=== PATIENT | male | born 1945 | race African-American/Black ===

== ENCOUNTER 2020-10-21 07:56 | Emergency (ER) | payer SELFPAY ==
[2020-10-21] MEDS ORDERED: Ondansetron PF 4 MG/2 ML Vial ONE (08:39)
[2020-10-21] MEDS ORDERED: Acetaminophen 500 MG TAB ONE (08:39)
[2020-10-21 09:11] LABS: #Lymphocytes 0.9 thou/uL (1.20-3.40); #Monocytes 0.1 thou/uL (0.11-0.59); %Basophils 0.8 % (0.0-1.0); %Eosinophils 0.2 % (0.0-10.0); %Lymphocytes 29.4 % (21.0-51.0); %Neutrophils 65.7 % (42.0-75.0); Hemoglobin 16.1 g/dL (14.0-18.0); Mean Corpuscular HGB CONC 32.9 g/dL (32.0-36.0); Mean Corpuscular Hemoglobin 27.1 pg (27.0-31.0); Mean Corpuscular Volume 82.3 fL (78.0-98.0); Mean Platelet Volume 6.9 fL (7.4-10.4); Platelet Count 209 thou/uL (130-400); RBC Distribution Width 12.7 % (11.5-14.5); Red Blood Cell (RBC) Count 5.96 mill/uL (4.70-6.10); White Blood Cell (WBC) Count 3.1 thou/uL (4.8-10.8)
[2020-10-21 09:32] LABS: ALT (SGPT) 36 U/L (8-55); AST (SGOT) 49 U/L (5-34); Albumin 3.6 g/dL (3.4-4.8); Alkaline Phosphatase 79 U/L (40-110); Anion Gap 14 mmol/L (10-20); BUN (Urea Nitrogen) 14 mg/dL (8.4-25.7); Bilirubin, Total 0.5 mg/dL (0.2-1.2); Calc. Creatinine Clearance 0 mL/min (70-130); Calcium 8.3 mg/dL (7.8-10.44); Carbon Dioxide 21 mmol/L (23-31); Chloride 98 mmol/L (98-107); Globulin 3.5 g/dL (2.4-3.5); Glucose 196 mg/dL (83-110); Lipase 56 U/L (8-78); Potassium 4.2 mmol/L (3.5-5.1); Protein, Total 7.1 g/dL (5.8-8.1); Sodium 129 mmol/L (136-145)
== END 2020-10-21 10:51 | disposition home or self-care (01) ==
LOC: ERS 07:56
DX: U07.1 COVID-19 (principal); E86.0 Dehydration; E87.1 Hypo-osmolality and hyponatremia; E11.9 Type 2 diabetes mellitus without complications; E78.5 Hyperlipidemia, unspecified; E78.00 Pure hypercholesterolemia, unspecified; I10 Essential (primary) hypertension; Z79.4 Long term (current) use of insulin; Z87.891 Personal history of nicotine dependence; Z79.899 Other long term (current) drug therapy; Z79.82 Long term (current) use of aspirin
CPT/HCPCS: 36415; 71045; 80053; 83690; 84484; 85025; 93005; 96374; J2405

== ENCOUNTER 2020-10-24 13:28 | Inpatient (IN) | payer OTHER, SELFPAY ==
[~2020-10-24 13:28] MED LIST: Iopamidol-370 76% 500 ML 1 ML ONE
[2020-10-24 14:08] LABS: #Basophils 0.1 thou/uL (0.0-0.2); #Lymphocytes 0.9 thou/uL (1.20-3.40); #Monocytes 0.2 thou/uL (0.11-0.59); #Neutrophils 5.6 thou/uL (1.40-6.50); %Basophils 1.1 % (0.0-1.0); %Eosinophils 0.1 % (0.0-10.0); %Lymphocytes 13.2 % (21.0-51.0); %Monocytes 2.3 % (0.0-10.0); %Neutrophils 83.3 % (42.0-75.0); Hemoglobin 17.8 g/dL (14.0-18.0); Mean Corpuscular Hemoglobin 27.3 pg (27.0-31.0); Mean Corpuscular Volume 80.1 fL (78.0-98.0); Mean Platelet Volume 8.2 fL (7.4-10.4); Platelet Count 206 thou/uL (130-400); RBC Distribution Width 12.9 % (11.5-14.5); Red Blood Cell (RBC) Count 6.54 mill/uL (4.70-6.10); White Blood Cell (WBC) Count 6.7 thou/uL (4.8-10.8)
[2020-10-24 14:28] LABS: ALT (SGPT) 81 U/L (8-55); AST (SGOT) 167 U/L (5-34); Albumin 3.4 g/dL (3.4-4.8); Alkaline Phosphatase 102 U/L (40-110); Anion Gap 18 mmol/L (10-20); BUN (Urea Nitrogen) 36 mg/dL (8.4-25.7); Bilirubin, Total 0.8 mg/dL (0.2-1.2); Calc. Creatinine Clearance 0 mL/min (70-130); Calcium 8.9 mg/dL (7.8-10.44); Carbon Dioxide 21 mmol/L (23-31); Chloride 93 mmol/L (98-107); Glucose 407 mg/dL (83-110); Potassium 4.6 mmol/L (3.5-5.1); Protein, Total 7.4 g/dL (5.8-8.1); Sodium 127 mmol/L (136-145)
[2020-10-24 14:51] LABS: CKMB 5.3 ng/mL (0-6.6)
[2020-10-24 15:16] LABS: SARS-CoV-2 NAA Rapid Test DETECTED (NotDetected)
[2020-10-24] MEDS ORDERED: methylPREDNISolone Sod Succ/PF 125 MG/2 ML VIAL ONE (15:17)
[2020-10-24] MEDS ORDERED: Azithromycin 500 MG VIAL ONE (15:17)
[2020-10-24] MEDS ORDERED: Aspirin 325 MG TAB ONE (15:17)
[2020-10-24] MEDS ORDERED: cefTRIAXone\\ROCEPHIN 2 GM VIAL ONE (15:17)
[2020-10-24 17:37] LABS: Lactic Acid 1.6 mmol/L (0.5-2.2)
[2020-10-24 17:42] LABS: Troponin I 0.035 ng/mL (< 0.028)
[2020-10-24] MEDS ORDERED: Pharmacy to Dose REMDESIVIR IVPB PRN (18:25)
[2020-10-24] MEDS ORDERED: Dextrose 50% Abboject 50 ML SYRINGE SLOW IVP PRN (18:56)
[2020-10-24] MEDS ORDERED: Dextrose 5% in Water 1,000 ML IV PRN (18:56)
[2020-10-24] MEDS: Sodium Chloride 0.9% 1,000 ML IV SCH (19:59)
[2020-10-24] MEDS: Heparin 5,000 UNITS/ML VIAL SC SCH (20:00)
[2020-10-24] MEDS ORDERED: REMDESIVIR 200 MG in Sodium Chloride 0.9% 250 ML 210 ML IV SCH (20:00)
[2020-10-24] MEDS: Lantus 1000 UNITS/10 ML VIAL SC SCH (20:31)
[2020-10-24 20:42] LABS: Troponin I 0.043 ng/mL (< 0.028)
[2020-10-24] MEDS: HumaLOG 300 UNITS/3 ML VIAL SC PRN (20:51)
[2020-10-25] MEDS: HumaLOG 300 UNITS/3 ML VIAL SC PRN ×4 (00:28→23:47)
[2020-10-25 03:36] LABS: #Lymphocytes 0.7 thou/uL (1.20-3.40); #Monocytes 0.2 thou/uL (0.11-0.59); #Neutrophils 4.9 thou/uL (1.40-6.50); %Basophils 0.2 % (0.0-1.0); %Lymphocytes 12.5 % (21.0-51.0); %Neutrophils 84.3 % (42.0-75.0); Hemoglobin 16.1 g/dL (14.0-18.0); Mean Corpuscular Hemoglobin 27.2 pg (27.0-31.0); Mean Corpuscular Volume 80.2 fL (78.0-98.0); Mean Platelet Volume 7.9 fL (7.4-10.4); Platelet Count 175 thou/uL (130-400); RBC Distribution Width 12.9 % (11.5-14.5); White Blood Cell (WBC) Count 5.8 thou/uL (4.8-10.8)
[2020-10-25 03:55] LABS: Anion Gap 16 mmol/L (10-20); BUN (Urea Nitrogen) 50 mg/dL (8.4-25.7); Calc. Creatinine Clearance 27 mL/min (70-130); Calcium 8.2 mg/dL (7.8-10.44); Carbon Dioxide 17 mmol/L (23-31); Chloride 100 mmol/L (98-107); Glucose 333 mg/dL (83-110); Potassium 4.2 mmol/L (3.5-5.1); Sodium 129 mmol/L (136-145)
[2020-10-25] MEDS ORDERED: Dexamethasone 6 MG in Sodium Chloride 0.9% 50 ML IVPB SCH (09:00)
[2020-10-25] MEDS: Amlodipine 5 MG TAB PO SCH (09:37)
[2020-10-25] MEDS: Carvedilol 6.25 MG TAB PO SCH (09:37)
[2020-10-25] MEDS: Aspirin 325 MG TAB PO SCH (09:37)
[2020-10-25] MEDS: Lantus 1000 UNITS/10 ML VIAL SC SCH ×2 (09:38→21:12)
[2020-10-25] MEDS: Heparin 5,000 UNITS/ML VIAL SC SCH ×3 (09:38→21:11)
[2020-10-25] MEDS: Sodium Chloride 0.9% 1,000 ML IV SCH ×2 (10:09→23:25)
[2020-10-25] MEDS: cefTRIAXone\\ROCEPHIN 1 GM in Sodium Chloride 0.9% 100 ML IVPB SCH (16:20)
[2020-10-25] MEDS: Azithromycin 500 MG in Sodium Chloride 0.9% 250 ML 250 ML IVPB SCH (16:20)
[2020-10-25] MEDS ORDERED: REMDESIVIR 100 MG in Sodium Chloride 0.9% 250 ML 230 ML IV SCH (20:00)
[2020-10-25] MEDS: Colchicine 0.6 MG TAB PO SCH (21:11)
[2020-10-25] MEDS: Atorvastatin Calcium 40 MG TAB PO SCH (21:11)
[2020-10-26] MEDS: HumaLOG 300 UNITS/3 ML VIAL SC PRN ×3 (06:49→21:51)
[2020-10-26] MEDS: Colchicine 0.6 MG TAB PO SCH ×2 (08:50→21:49)
[2020-10-26] MEDS: Carvedilol 6.25 MG TAB PO SCH (08:50)
[2020-10-26] MEDS: Aspirin 325 MG TAB PO SCH (08:50)
[2020-10-26] MEDS: Amlodipine 5 MG TAB PO SCH (08:51)
[2020-10-26] MEDS: Heparin 5,000 UNITS/ML VIAL SC SCH ×3 (08:51→21:49)
[2020-10-26] MEDS: Lantus 1000 UNITS/10 ML VIAL SC SCH ×2 (08:52→21:49)
[2020-10-26 09:35] LABS: #Monocytes 0.6 thou/uL (0.11-0.59); #Neutrophils 8.5 thou/uL (1.40-6.50); %Lymphocytes 9.6 % (21.0-51.0); %Monocytes 5.7 % (0.0-10.0); %Neutrophils 84.7 % (42.0-75.0); Hemoglobin 16.4 g/dL (14.0-18.0); Mean Corpuscular HGB CONC 32.7 g/dL (32.0-36.0); Mean Corpuscular Hemoglobin 26.7 pg (27.0-31.0); Mean Corpuscular Volume 81.5 fL (78.0-98.0); Mean Platelet Volume 8.2 fL (7.4-10.4); Platelet Count 245 thou/uL (130-400); Red Blood Cell (RBC) Count 6.16 mill/uL (4.70-6.10); White Blood Cell (WBC) Count 10.1 thou/uL (4.8-10.8)
[2020-10-26 10:28] LABS: Anion Gap 17 mmol/L (10-20); BUN (Urea Nitrogen) 82 mg/dL (8.4-25.7); Calc. Creatinine Clearance 17 mL/min (70-130); Calcium 8.1 mg/dL (7.8-10.44); Carbon Dioxide 17 mmol/L (23-31); Chloride 102 mmol/L (98-107); Glucose 203 mg/dL (83-110); Potassium 3.9 mmol/L (3.5-5.1); Sodium 132 mmol/L (136-145)
[2020-10-26 10:48] LABS: Actual Bicarbonate (HCO3a) 19.1 mEq/L (22-28); Base Excess (BEa) -5.2 mEq/L (-2.0 to +3.0); CO2 Tension 33.8 mmHg (35.0-45.0); Hemoglobin (Hb) 15.4 g/dL (14.0-18.0); O2 Tension (PaO2), arterial 60.9 mmHg (> 70.0); Potassium - ABG Lab 3.93 mmol/L (3.70-5.30); pH, Arterial 7.37 (7.35-7.45)
[2020-10-26 10:51] LABS: Puncture Site LRA
[2020-10-26] MEDS: methylPREDNISolone Sod Succ/PF 125 MG in Sodium Chloride 0.9% 250 ML 250 ML IVPB SCH (15:38)
[2020-10-26] MEDS: Azithromycin 500 MG in Sodium Chloride 0.9% 250 ML 250 ML IVPB SCH (15:45)
[2020-10-26] MEDS: cefTRIAXone\\ROCEPHIN 1 GM in Sodium Chloride 0.9% 100 ML IVPB SCH (15:45)
[2020-10-26] MEDS: Sodium Chloride 0.9% 1,000 ML IV SCH (15:49)
[2020-10-26] MEDS ORDERED: Sodium Bicarbonate Tab 325 MG TAB PO SCH (16:00)
[2020-10-26] MEDS: Atorvastatin Calcium 40 MG TAB PO SCH (21:49)
[2020-10-26] MEDS: Sodium Bicarbonate Tab 325 MG TAB PO SCH (21:50)
[2020-10-26] MEDS: Melatonin 3 MG TAB PO PRN (22:19)
[2020-10-26 22:36] LABS: Bilirubin Negative (Negative); Blood, Urine 3+ (Negative); Clarity Turbid (Clear); Glucose, Urine (Dipstick) 100 mg/dL (Negative); Ketone, Urine Negative (Negative); Leukocyte Negative Leu/uL (Negative); Nitrite Negative (Negative); Protein, Urine (Dipstick) 50 mg/dL (Neg-Trace); Specific Gravity, Urine 1.012 (1.002-1.036); Squamous Epithelial 0-3 HPF (0-3); Urobilinogen Normal mg/dL (Less than 2); pH, Urine 5.5 (5.0-9.0)
[2020-10-26 22:43] LABS: Bacteria/HPF 1+ HPF (None Seen)
[2020-10-26 22:46] LABS: Urine Culture Reflex Yes Yes
[2020-10-26 22:49] LABS: Creatinine, Urine 39.31 mg/dL (63-166)
[2020-10-27] MEDS ORDERED: traZODone HCl 50 MG TAB PO SCH (03:00)
[2020-10-27 08:50] LABS: Albumin 2.7 g/dL (3.4-4.8); Anion Gap 17 mmol/L (10-20); BUN (Urea Nitrogen) 100 mg/dL (8.4-25.7); BUN/Creatinine Ratio 15.75; Calc. Creatinine Clearance 15 mL/min (70-130); Calcium 7.9 mg/dL (7.8-10.44); Carbon Dioxide 15 mmol/L (23-31); Chloride 101 mmol/L (98-107); Glucose 186 mg/dL (83-110); Potassium 4.2 mmol/L (3.5-5.1); Sodium 129 mmol/L (136-145)
[2020-10-27] MEDS: Amlodipine 5 MG TAB PO SCH (09:50)
[2020-10-27] MEDS: Aspirin 325 MG TAB PO SCH (09:50)
[2020-10-27] MEDS: Heparin 5,000 UNITS/ML VIAL SC SCH (09:50)
[2020-10-27] MEDS: Carvedilol 6.25 MG TAB PO SCH (09:50)
[2020-10-27] MEDS: Colchicine 0.6 MG TAB PO SCH (09:50)
[2020-10-27] MEDS: Sodium Bicarbonate Tab 325 MG TAB PO SCH ×3 (09:50→20:00)
[2020-10-27] MEDS: Lantus 1000 UNITS/10 ML VIAL SC SCH ×2 (09:51→20:01)
[2020-10-27] MEDS: Azithromycin 500 MG in Sodium Chloride 0.9% 250 ML 250 ML IVPB SCH (15:55)
[2020-10-27] MEDS: cefTRIAXone\\ROCEPHIN 1 GM in Sodium Chloride 0.9% 100 ML IVPB SCH (15:56)
[2020-10-27] MEDS: Acetaminophen 325 MG TAB PO PRN ×2 (15:56→22:52)
[2020-10-27] MEDS ORDERED: Pantoprazole 40 MG VIAL IVP SCH (16:15)
[2020-10-27] MEDS: methylPREDNISolone Sod Succ/PF 125 MG in Sodium Chloride 0.9% 250 ML 250 ML IVPB SCH (16:44)
[2020-10-27] MEDS: HumaLOG 300 UNITS/3 ML VIAL SC PRN (16:47)
[2020-10-27] MEDS: Atorvastatin Calcium 40 MG TAB PO SCH (20:00)
[2020-10-27] MEDS: Enoxaparin Sodium 60 MG/0.6 ML SYRINGE SC SCH (20:00)
[2020-10-27] MEDS: Melatonin 3 MG TAB PO PRN (22:52)
[2020-10-28 03:56] LABS: Albumin 2.9 g/dL (3.4-4.8); Anion Gap 18 mmol/L (10-20); BUN (Urea Nitrogen) 120 mg/dL (8.4-25.7); BUN/Creatinine Ratio 18.13; Band 2 % (5-11); Calc. Creatinine Clearance 14 mL/min (70-130); Carbon Dioxide 16 mmol/L (23-31); Chloride 105 mmol/L (98-107); Glucose 88 mg/dL (83-110); Hemoglobin 15.7 g/dL (14.0-18.0); Lymphocytes 7 % (21-51); MDiff Complete? YES; Mean Corpuscular HGB CONC 32.8 g/dL (32.0-36.0); Mean Corpuscular Hemoglobin 26.1 pg (27.0-31.0); Mean Corpuscular Volume 79.5 fL (78.0-98.0); Mean Platelet Volume 7.9 fL (7.4-10.4); Monocytes 10 % (0-10); Neutrophil 78 % (42-75); Phosphorus 4.2 mg/dL (2.3-4.7); Platelet Count 315 thou/uL (130-400); Platelet Morphology Comment Appears Adequate; Potassium 3.8 mmol/L (3.5-5.1); RBC Distribution Width 13.2 % (11.5-14.5); RBC Morphology Normal; Reactive Lymphocytes 3 % (0-10); Red Blood Cell (RBC) Count 6.02 mill/uL (4.70-6.10); Sodium 135 mmol/L (136-145); White Blood Cell (WBC) Count 10.3 thou/uL (4.8-10.8)
[2020-10-28] MEDS: Carvedilol 6.25 MG TAB PO SCH (08:13)
[2020-10-28] MEDS: Pantoprazole 40 MG VIAL IVP SCH ×2 (08:13→21:00)
[2020-10-28] MEDS: Lantus 1000 UNITS/10 ML VIAL SC SCH ×3 (08:14→21:02)
[2020-10-28] MEDS: Sodium Bicarbonate Tab 325 MG TAB PO SCH ×3 (08:14→21:01)
[2020-10-28] MEDS: Colchicine 0.6 MG TAB PO SCH (08:14)
[2020-10-28] MEDS: Amlodipine 5 MG TAB PO SCH (08:14)
[2020-10-28] MEDS: Aspirin 325 MG TAB PO SCH (08:14)
[2020-10-28] MEDS: Azithromycin 500 MG in Sodium Chloride 0.9% 250 ML 250 ML IVPB SCH (15:53)
[2020-10-28] MEDS: cefTRIAXone\\ROCEPHIN 1 GM in Sodium Chloride 0.9% 100 ML IVPB SCH (17:29)
[2020-10-28] MEDS: Ascorbic Acid 500 mg Chewable Tablet PO SCH (21:00)
[2020-10-28] MEDS: Atorvastatin Calcium 40 MG TAB PO SCH (21:00)
[2020-10-28] MEDS: Enoxaparin Sodium 60 MG/0.6 ML SYRINGE SC SCH (21:01)
[2020-10-28] MEDS: Cholecalciferol 1,000 UNITS (25 MCG) TAB PO SCH (21:01)
[2020-10-28] MEDS: Temazepam 15 MG CAP PO PRN (21:01)
[2020-10-29] MEDS ORDERED: Lorazepam 0.5 MG TAB PO SCH (02:00)
[2020-10-29 05:23] LABS: Albumin 3.2 g/dL (3.4-4.8); Anion Gap 18 mmol/L (10-20); BUN (Urea Nitrogen) 104 mg/dL (8.4-25.7); BUN/Creatinine Ratio 17.75; Calc. Creatinine Clearance 16 mL/min (70-130); Calcium 8.3 mg/dL (7.8-10.44); Carbon Dioxide 17 mmol/L (23-31); Chloride 106 mmol/L (98-107); Glucose 250 mg/dL (83-110); Phosphorus 4.3 mg/dL (2.3-4.7); Sodium 137 mmol/L (136-145)
[2020-10-29] MEDS: HumaLOG 300 UNITS/3 ML VIAL SC PRN (05:33)
[2020-10-29] MEDS: Aspirin 325 MG TAB PO SCH (08:39)
[2020-10-29] MEDS: Ascorbic Acid 500 mg Chewable Tablet PO SCH ×2 (08:39→21:03)
[2020-10-29] MEDS: Pantoprazole 40 MG VIAL IVP SCH ×2 (08:40→21:04)
[2020-10-29] MEDS: Amlodipine 5 MG TAB PO SCH (08:40)
[2020-10-29] MEDS: Carvedilol 6.25 MG TAB PO SCH (08:40)
[2020-10-29] MEDS: Colchicine 0.6 MG TAB PO SCH (08:40)
[2020-10-29] MEDS: Zinc Sulfate 220 MG CAP PO SCH (08:40)
[2020-10-29] MEDS: Lantus 1000 UNITS/10 ML VIAL SC SCH ×2 (08:41→21:27)
[2020-10-29] MEDS: Sodium Bicarbonate Tab 325 MG TAB PO SCH ×3 (10:22→21:03)
[2020-10-29] MEDS: Azithromycin 500 MG in Sodium Chloride 0.9% 250 ML 250 ML IVPB SCH (15:51)
[2020-10-29] MEDS: ALPRAZolam 0.25 MG TAB PO SCH ×3 (15:52→21:03)
[2020-10-29] MEDS: cefTRIAXone\\ROCEPHIN 1 GM in Sodium Chloride 0.9% 100 ML IVPB SCH (16:34)
[2020-10-29] MEDS: Cholecalciferol 1,000 UNITS (25 MCG) TAB PO SCH (21:03)
[2020-10-29] MEDS: Atorvastatin Calcium 40 MG TAB PO SCH (21:03)
[2020-10-29] MEDS: Temazepam 15 MG CAP PO PRN (21:03)
[2020-10-29] MEDS: Enoxaparin Sodium 60 MG/0.6 ML SYRINGE SC SCH (21:04)
[2020-10-30 04:08] LABS: Albumin 3.2 g/dL (3.4-4.8); Anion Gap 16 mmol/L (10-20); BUN (Urea Nitrogen) 86 mg/dL (8.4-25.7); BUN/Creatinine Ratio 19.15; Calc. Creatinine Clearance 21 mL/min (70-130); Calcium 8.4 mg/dL (7.8-10.44); Carbon Dioxide 20 mmol/L (23-31); Chloride 110 mmol/L (98-107); Glucose 119 mg/dL (83-110); Phosphorus 3.1 mg/dL (2.3-4.7); Potassium 4.1 mmol/L (3.5-5.1); Sodium 142 mmol/L (136-145)
[2020-10-30] MEDS ORDERED: Sodium Bicarbonate 150 MEQ in Dextrose 5% in Water 1,000 ML IV SCH (09:15)
[2020-10-30] MEDS: Carvedilol 6.25 MG TAB PO SCH (09:20)
[2020-10-30] MEDS: Colchicine 0.6 MG TAB PO SCH (09:20)
[2020-10-30] MEDS: Zinc Sulfate 220 MG CAP PO SCH (09:20)
[2020-10-30] MEDS: Ascorbic Acid 500 mg Chewable Tablet PO SCH ×2 (09:20→20:58)
[2020-10-30] MEDS: Aspirin 325 MG TAB PO SCH (09:20)
[2020-10-30] MEDS: ALPRAZolam 0.25 MG TAB PO SCH ×2 (09:20→21:40)
[2020-10-30] MEDS: Sodium Bicarbonate Tab 325 MG TAB PO SCH ×3 (09:20→21:15)
[2020-10-30] MEDS: Pantoprazole 40 MG VIAL IVP SCH ×2 (09:20→21:00)
[2020-10-30] MEDS: Lantus 1000 UNITS/10 ML VIAL SC SCH (09:20)
[2020-10-30] MEDS: Amlodipine 5 MG TAB PO SCH ×2 (09:28→20:59)
[2020-10-30 10:13] LABS: Lactic Acid 1.4 mmol/L (0.5-2.2)
[2020-10-30] MEDS: Azithromycin 500 MG in Sodium Chloride 0.9% 250 ML 250 ML IVPB SCH (15:30)
[2020-10-30] MEDS: cefTRIAXone\\ROCEPHIN 1 GM in Sodium Chloride 0.9% 100 ML IVPB SCH (15:30)
[2020-10-30] MEDS: Cholecalciferol 1,000 UNITS (25 MCG) TAB PO SCH (20:59)
[2020-10-30] MEDS: Atorvastatin Calcium 40 MG TAB PO SCH (20:59)
[2020-10-30] MEDS: Enoxaparin Sodium 60 MG/0.6 ML SYRINGE SC SCH (21:00)
[2020-10-30] MEDS: methylPREDNISolone Sod Succ/PF 125 MG in Sodium Chloride 0.9% 250 ML 250 ML IVPB SCH (21:18)
[2020-10-30 22:37] LABS: Actual Bicarbonate (HCO3a) 21.7 mEq/L (22-28); Base Excess (BEa) -0.4 mEq/L (-2.0 to +3.0); CO2 Tension 29.8 mmHg (35.0-45.0); Calcium, Ionized (arterial) 1.13 mmol/L (1.12-1.30); Hemoglobin (Hb) 16.7 g/dL (14.0-18.0); Potassium - ABG Lab 4.02 mmol/L (3.70-5.30); pH, Arterial 7.48 (7.35-7.45)
[2020-10-30 22:38] LABS: O2 Tension (PaO2), arterial 54.3 mmHg (> 70.0); Puncture Site RRA
[2020-10-31 04:07] LABS: Albumin 3.1 g/dL (3.4-4.8); Anion Gap 17 mmol/L (10-20); BUN (Urea Nitrogen) 70 mg/dL (8.4-25.7); BUN/Creatinine Ratio 21.02; Calc. Creatinine Clearance 28 mL/min (70-130); Calcium 8.5 mg/dL (7.8-10.44); Carbon Dioxide 21 mmol/L (23-31); Chloride 110 mmol/L (98-107); Glucose 248 mg/dL (83-110); Phosphorus 3.7 mg/dL (2.3-4.7); Potassium 3.9 mmol/L (3.5-5.1); Sodium 144 mmol/L (136-145)
[2020-10-31] MEDS: HumaLOG 300 UNITS/3 ML VIAL SC PRN (06:35)
[2020-10-31] MEDS: Pantoprazole 40 MG VIAL IVP SCH ×2 (09:34→21:56)
[2020-10-31] MEDS: Lantus 1000 UNITS/10 ML VIAL SC SCH (09:35)
[2020-10-31] MEDS: Carvedilol 6.25 MG TAB PO SCH (09:36)
[2020-10-31] MEDS: Colchicine 0.6 MG TAB PO SCH (09:36)
[2020-10-31] MEDS: Zinc Sulfate 220 MG CAP PO SCH (09:36)
[2020-10-31] MEDS: Aspirin 325 MG TAB PO SCH (09:36)
[2020-10-31] MEDS: ALPRAZolam 0.25 MG TAB PO SCH ×2 (09:36→22:04)
[2020-10-31] MEDS: Sodium Bicarbonate Tab 325 MG TAB PO SCH ×3 (09:36→22:03)
[2020-10-31] MEDS: Amlodipine 5 MG TAB PO SCH ×2 (09:36→22:04)
[2020-10-31] MEDS: Ascorbic Acid 500 mg Chewable Tablet PO SCH ×2 (09:36→22:04)
[2020-10-31] MEDS: Labetalol HCl 100 MG/20 ML VIAL SLOW IVP PRN ×2 (09:50→15:39)
[2020-10-31] MEDS ORDERED: Sodium Bicarbonate 150 MEQ in Dextrose 5% in Water 1,000 ML IV SCH (10:15)
[2020-10-31] MEDS: Azithromycin 500 MG in Sodium Chloride 0.9% 250 ML 250 ML IVPB SCH (15:39)
[2020-10-31] MEDS: cefTRIAXone\\ROCEPHIN 1 GM in Sodium Chloride 0.9% 100 ML IVPB SCH (17:43)
[2020-10-31] MEDS: Enoxaparin Sodium 60 MG/0.6 ML SYRINGE SC SCH (21:56)
[2020-10-31] MEDS: methylPREDNISolone Sod Succ/PF 125 MG in Sodium Chloride 0.9% 250 ML 250 ML IVPB SCH (21:57)
[2020-10-31] MEDS: Atorvastatin Calcium 40 MG TAB PO SCH (22:04)
[2020-10-31] MEDS: Cholecalciferol 1,000 UNITS (25 MCG) TAB PO SCH (22:04)
[2020-11-01 04:18] LABS: Anion Gap 16 mmol/L (10-20); BUN (Urea Nitrogen) 54 mg/dL (8.4-25.7); BUN/Creatinine Ratio 20.93; Calc. Creatinine Clearance 35 mL/min (70-130); Calcium 8.8 mg/dL (7.8-10.44); Carbon Dioxide 23 mmol/L (23-31); Chloride 111 mmol/L (98-107); Glucose 248 mg/dL (83-110); Phosphorus 3.6 mg/dL (2.3-4.7); Potassium 3.9 mmol/L (3.5-5.1); Sodium 146 mmol/L (136-145)
[2020-11-01] MEDS: HumaLOG 300 UNITS/3 ML VIAL SC PRN ×2 (05:16→18:22)
[2020-11-01] MEDS: Amlodipine 5 MG TAB PO SCH ×2 (10:40→21:24)
[2020-11-01] MEDS: ALPRAZolam 0.25 MG TAB PO SCH ×2 (10:40→21:24)
[2020-11-01] MEDS: Zinc Sulfate 220 MG CAP PO SCH (10:41)
[2020-11-01] MEDS: Aspirin 325 MG TAB PO SCH (10:41)
[2020-11-01] MEDS: Colchicine 0.6 MG TAB PO SCH (10:41)
[2020-11-01] MEDS: Ascorbic Acid 500 mg Chewable Tablet PO SCH ×2 (10:41→21:24)
[2020-11-01] MEDS: Lantus 1000 UNITS/10 ML VIAL SC SCH (10:41)
[2020-11-01] MEDS: Carvedilol 6.25 MG TAB PO SCH (10:41)
[2020-11-01] MEDS: Pantoprazole 40 MG VIAL IVP SCH ×2 (11:01→21:23)
[2020-11-01] MEDS: Dextrose 5% in Water 1,000 ML IV SCH (11:34)
[2020-11-01] MEDS: cefTRIAXone\\ROCEPHIN 1 GM in Sodium Chloride 0.9% 100 ML IVPB SCH (15:15)
[2020-11-01] MEDS: Azithromycin 500 MG in Sodium Chloride 0.9% 250 ML 250 ML IVPB SCH (15:15)
[2020-11-01] MEDS: Enoxaparin Sodium 60 MG/0.6 ML SYRINGE SC SCH (21:23)
[2020-11-01] MEDS: Atorvastatin Calcium 40 MG TAB PO SCH (21:24)
[2020-11-01] MEDS: Cholecalciferol 1,000 UNITS (25 MCG) TAB PO SCH (21:24)
[2020-11-02] MEDS: HumaLOG 300 UNITS/3 ML VIAL SC PRN ×2 (00:57→05:52)
[2020-11-02] MEDS: methylPREDNISolone Sod Succ/PF 125 MG in Sodium Chloride 0.9% 250 ML 250 ML IVPB SCH (02:04)
[2020-11-02 04:08] LABS: Mean Corpuscular HGB CONC 32.7 g/dL (32.0-36.0); Mean Corpuscular Hemoglobin 26.9 pg (27.0-31.0); Mean Corpuscular Volume 82.1 fL (78.0-98.0); Mean Platelet Volume 8.6 fL (7.4-10.4); Platelet Count 347 thou/uL (130-400); RBC Distribution Width 13.4 % (11.5-14.5); Red Blood Cell (RBC) Count 5.95 mill/uL (4.70-6.10); White Blood Cell (WBC) Count 11.3 thou/uL (4.8-10.8)
[2020-11-02 04:47] LABS: Albumin 2.8 g/dL (3.4-4.8); Anion Gap 13 mmol/L (10-20); BUN (Urea Nitrogen) 48 mg/dL (8.4-25.7); BUN/Creatinine Ratio 21.15; CRP (Inflammatory) 2.71 mg/dL (= or < 0.5); Calc. Creatinine Clearance 40 mL/min (70-130); Calcium 8.8 mg/dL (7.8-10.44); Carbon Dioxide 24 mmol/L (23-31); Chloride 112 mmol/L (98-107); Glucose 282 mg/dL (83-110); Phosphorus 2.8 mg/dL (2.3-4.7); Sodium 145 mmol/L (136-145)
[2020-11-02] MEDS: Dextrose 5% in Water 1,000 ML IV SCH (05:52)
[2020-11-02] MEDS: Colchicine 0.6 MG TAB PO SCH (10:33)
[2020-11-02] MEDS: Pantoprazole 40 MG VIAL IVP SCH ×2 (10:33→21:33)
[2020-11-02] MEDS: Ascorbic Acid 500 mg Chewable Tablet PO SCH ×2 (10:33→21:23)
[2020-11-02] MEDS: Amlodipine 5 MG TAB PO SCH ×2 (10:33→21:34)
[2020-11-02] MEDS: Carvedilol 6.25 MG TAB PO SCH (10:33)
[2020-11-02] MEDS: Zinc Sulfate 220 MG CAP PO SCH (10:33)
[2020-11-02] MEDS: Aspirin 325 MG TAB PO SCH (10:34)
[2020-11-02] MEDS: Lantus 1000 UNITS/10 ML VIAL SC SCH ×2 (10:34→21:35)
[2020-11-02] MEDS: ALPRAZolam 0.25 MG TAB PO SCH ×2 (10:34→21:31)
[2020-11-02] MEDS: Azithromycin 500 MG in Sodium Chloride 0.9% 250 ML 250 ML IVPB SCH (15:12)
[2020-11-02] MEDS: cefTRIAXone\\ROCEPHIN 1 GM in Sodium Chloride 0.9% 100 ML IVPB SCH (15:12)
[2020-11-02] MEDS: Atorvastatin Calcium 40 MG TAB PO SCH (21:31)
[2020-11-02] MEDS: Cholecalciferol 1,000 UNITS (25 MCG) TAB PO SCH (21:31)
[2020-11-02] MEDS: Enoxaparin Sodium 60 MG/0.6 ML SYRINGE SC SCH (21:32)
[2020-11-03] MEDS: HumaLOG 300 UNITS/3 ML VIAL SC PRN ×3 (00:14→20:57)
[2020-11-03 04:16] LABS: Albumin 2.8 g/dL (3.4-4.8); Anion Gap 16 mmol/L (10-20); BUN (Urea Nitrogen) 50 mg/dL (8.4-25.7); BUN/Creatinine Ratio 21.74; Calc. Creatinine Clearance 39 mL/min (70-130); Calcium 8.7 mg/dL (7.8-10.44); Carbon Dioxide 23 mmol/L (23-31); Chloride 113 mmol/L (98-107); Glucose 309 mg/dL (83-110); Phosphorus 3.1 mg/dL (2.3-4.7); Potassium 4.1 mmol/L (3.5-5.1); Sodium 148 mmol/L (136-145)
[2020-11-03] MEDS: methylPREDNISolone Sod Succ/PF 125 MG in Sodium Chloride 0.9% 250 ML 250 ML IVPB SCH (05:56)
[2020-11-03] MEDS: Dextrose 5% in Water 1,000 ML IV SCH (05:57)
[2020-11-03] MEDS: Carvedilol 6.25 MG TAB PO SCH (07:56)
[2020-11-03] MEDS: Ascorbic Acid 500 mg Chewable Tablet PO SCH ×2 (07:56→20:55)
[2020-11-03] MEDS: Colchicine 0.6 MG TAB PO SCH (07:56)
[2020-11-03] MEDS: Lantus 1000 UNITS/10 ML VIAL SC SCH ×2 (07:57→20:56)
[2020-11-03] MEDS: Amlodipine 5 MG TAB PO SCH (07:57)
[2020-11-03] MEDS: Aspirin 325 MG TAB PO SCH (07:57)
[2020-11-03] MEDS: ALPRAZolam 0.25 MG TAB PO SCH ×2 (07:57→20:55)
[2020-11-03] MEDS: Pantoprazole 40 MG VIAL IVP SCH ×2 (07:57→20:55)
[2020-11-03] MEDS: Zinc Sulfate 220 MG CAP PO SCH (07:57)
[2020-11-03] MEDS: Amlodipine 10 MG TAB PO SCH (08:35)
[2020-11-03] MEDS: Azithromycin 500 MG in Sodium Chloride 0.9% 250 ML 250 ML IVPB SCH (19:02)
[2020-11-03] MEDS: cefTRIAXone\\ROCEPHIN 1 GM in Sodium Chloride 0.9% 100 ML IVPB SCH (19:03)
[2020-11-03] MEDS: Atorvastatin Calcium 40 MG TAB PO SCH (20:54)
[2020-11-03] MEDS: Cholecalciferol 1,000 UNITS (25 MCG) TAB PO SCH (20:55)
[2020-11-03] MEDS: Enoxaparin Sodium 60 MG/0.6 ML SYRINGE SC SCH (20:55)
[2020-11-04] MEDS: HumaLOG 300 UNITS/3 ML VIAL SC PRN ×2 (00:19→06:44)
[2020-11-04 03:58] LABS: Albumin 2.6 g/dL (3.4-4.8); Anion Gap 15 mmol/L (10-20); BUN (Urea Nitrogen) 46 mg/dL (8.4-25.7); BUN/Creatinine Ratio 23.35; CRP (Inflammatory) 7.71 mg/dL (= or < 0.5); Calc. Creatinine Clearance 45 mL/min (70-130); Calcium 8.5 mg/dL (7.8-10.44); Carbon Dioxide 22 mmol/L (23-31); Chloride 110 mmol/L (98-107); Glucose 274 mg/dL (83-110); Phosphorus 3.4 mg/dL (2.3-4.7); Potassium 4.2 mmol/L (3.5-5.1); Sodium 143 mmol/L (136-145)
[2020-11-04] MEDS: Dextrose 5% in Water 1,000 ML IV SCH (05:40)
[2020-11-04] MEDS: Ascorbic Acid 500 mg Chewable Tablet PO SCH ×2 (08:36→20:42)
[2020-11-04] MEDS: Colchicine 0.6 MG TAB PO SCH (08:36)
[2020-11-04] MEDS: Zinc Sulfate 220 MG CAP PO SCH (08:36)
[2020-11-04] MEDS: Amlodipine 10 MG TAB PO SCH (08:36)
[2020-11-04] MEDS: Pantoprazole 40 MG VIAL IVP SCH ×2 (08:36→20:42)
[2020-11-04] MEDS: Carvedilol 6.25 MG TAB PO SCH (08:36)
[2020-11-04] MEDS: ALPRAZolam 0.25 MG TAB PO SCH ×2 (08:36→20:42)
[2020-11-04] MEDS: Aspirin 325 MG TAB PO SCH (08:36)
[2020-11-04] MEDS: Lantus 1000 UNITS/10 ML VIAL SC SCH ×2 (08:37→20:43)
[2020-11-04] MEDS ORDERED: Calcium Carbonate 500 MG ChewTAB PO PRN (10:03)
[2020-11-04] MEDS ORDERED: Loratadine 10 MG TAB PO PRN (10:03)
[2020-11-04] MEDS ORDERED: Cepastat Lozenges 1 LOZ PO PRN (10:03)
[2020-11-04] MEDS ORDERED: Sodium Chloride 0.65% Nasal 44 ML BOT EA NARE PRN (10:03)
[2020-11-04] MEDS ORDERED: Ondansetron ODT 4 MG TAB PO PRN (10:03)
[2020-11-04] MEDS ORDERED: Bisacodyl 5 MG TAB PO PRN (10:03)
[2020-11-04] MEDS ORDERED: Ondansetron PF 4 MG/2 ML Vial IVP PRN (10:03)
[2020-11-04] MEDS ORDERED: GUAIFENESIN SF SOLN 200 MG/10 ML UDCUP PO PRN (10:03)
[2020-11-04] MEDS ORDERED: Benzonatate 100 MG CAP PO PRN (10:03)
[2020-11-04] MEDS ORDERED: Loperamide HCl 2 MG CAP PO PRN (10:03)
[2020-11-04] MEDS ORDERED: Albuterol Sulfate 2.5 mg/3 ml Neb NEB PRN (10:04)
[2020-11-04] MEDS: Atorvastatin Calcium 40 MG TAB PO SCH (20:42)
[2020-11-04] MEDS: Cholecalciferol 1,000 UNITS (25 MCG) TAB PO SCH (20:42)
[2020-11-04] MEDS: Enoxaparin Sodium 60 MG/0.6 ML SYRINGE SC SCH (20:42)
[2020-11-05] MEDS: HumaLOG 300 UNITS/3 ML VIAL SC PRN ×2 (00:27→06:32)
[2020-11-05 04:02] LABS: #Lymphocytes 0.5 thou/uL (1.20-3.40); #Monocytes 0.1 thou/uL (0.11-0.59); #Neutrophils 9.3 thou/uL (1.40-6.50); %Basophils 0.1 % (0.0-1.0); %Eosinophils 0.3 % (0.0-10.0); %Lymphocytes 5.2 % (21.0-51.0); %Monocytes 0.8 % (0.0-10.0); %Neutrophils 93.6 % (42.0-75.0); Hemoglobin 13.9 g/dL (14.0-18.0); Mean Corpuscular HGB CONC 32.5 g/dL (32.0-36.0); Mean Corpuscular Volume 83.1 fL (78.0-98.0); Mean Platelet Volume 9.4 fL (7.4-10.4); Platelet Count 229 thou/uL (130-400); RBC Distribution Width 13.3 % (11.5-14.5); Red Blood Cell (RBC) Count 5.16 mill/uL (4.70-6.10); White Blood Cell (WBC) Count 9.9 thou/uL (4.8-10.8)
[2020-11-05 04:18] LABS: Albumin 2.3 g/dL (3.4-4.8); Anion Gap 13 mmol/L (10-20); BUN (Urea Nitrogen) 46 mg/dL (8.4-25.7); BUN/Creatinine Ratio 26.74; Calc. Creatinine Clearance 53 mL/min (70-130); Calcium 8.5 mg/dL (7.8-10.44); Carbon Dioxide 22 mmol/L (23-31); Chloride 110 mmol/L (98-107); Glucose 310 mg/dL (83-110); Phosphorus 3.4 mg/dL (2.3-4.7); Potassium 4.4 mmol/L (3.5-5.1); Sodium 141 mmol/L (136-145)
[2020-11-05] MEDS: Colchicine 0.6 MG TAB PO SCH (08:50)
[2020-11-05] MEDS: Ascorbic Acid 500 mg Chewable Tablet PO SCH ×2 (08:50→23:23)
[2020-11-05] MEDS: Carvedilol 6.25 MG TAB PO SCH (08:50)
[2020-11-05] MEDS: Zinc Sulfate 220 MG CAP PO SCH (08:51)
[2020-11-05] MEDS: Pantoprazole 40 MG VIAL IVP SCH ×2 (08:51→23:23)
[2020-11-05] MEDS: Aspirin 325 MG TAB PO SCH (08:51)
[2020-11-05] MEDS: Lantus 1000 UNITS/10 ML VIAL SC SCH ×2 (08:51→23:23)
[2020-11-05] MEDS: Amlodipine 10 MG TAB PO SCH (08:51)
[2020-11-05] MEDS: ALPRAZolam 0.25 MG TAB PO SCH ×2 (08:51→23:23)
[2020-11-05] MEDS: Atorvastatin Calcium 40 MG TAB PO SCH (23:22)
[2020-11-05] MEDS: Enoxaparin Sodium 60 MG/0.6 ML SYRINGE SC SCH (23:22)
[2020-11-05] MEDS: Cholecalciferol 1,000 UNITS (25 MCG) TAB PO SCH (23:23)
[2020-11-05] MEDS: Sodium Bicarbonate Tab 325 MG TAB PO SCH (23:24)
[2020-11-05] MEDS: Senokot S 8.6-50 MG TAB PO PRN (23:24)
[2020-11-06] MEDS: Lorazepam 0.5 MG TAB PO PRN ×3 (01:36→15:06)
[2020-11-06 04:23] LABS: Albumin 2.3 g/dL (3.4-4.8); Anion Gap 13 mmol/L (10-20); BUN (Urea Nitrogen) 43 mg/dL (8.4-25.7); BUN/Creatinine Ratio 30.07; Calc. Creatinine Clearance 65 mL/min (70-130); Calcium 8.2 mg/dL (7.8-10.44); Carbon Dioxide 21 mmol/L (23-31); Chloride 110 mmol/L (98-107); Glucose 289 mg/dL (83-110); Phosphorus 3.7 mg/dL (2.3-4.7); Potassium 4.8 mmol/L (3.5-5.1); Sodium 139 mmol/L (136-145)
[2020-11-06] MEDS: HumaLOG 300 UNITS/3 ML VIAL SC PRN ×3 (06:11→18:05)
[2020-11-06] MEDS ORDERED: Torsemide 10 MG TAB PO SCH (09:00)
[2020-11-06] MEDS ORDERED: Sodium Bicarbonate Tab 325 MG TAB PO SCH (09:30)
[2020-11-06] MEDS: ALPRAZolam 0.25 MG TAB PO SCH ×2 (09:50→20:42)
[2020-11-06] MEDS: Senokot S 8.6-50 MG TAB PO PRN (09:51)
[2020-11-06] MEDS: Amlodipine 10 MG TAB PO SCH (09:52)
[2020-11-06] MEDS: Zinc Sulfate 220 MG CAP PO SCH (09:52)
[2020-11-06] MEDS: Aspirin 325 MG TAB PO SCH (09:52)
[2020-11-06] MEDS: Colchicine 0.6 MG TAB PO SCH (09:52)
[2020-11-06] MEDS: Ascorbic Acid 500 mg Chewable Tablet PO SCH ×2 (09:52→20:42)
[2020-11-06] MEDS: Carvedilol 6.25 MG TAB PO SCH (09:53)
[2020-11-06] MEDS: Pantoprazole 40 MG VIAL IVP SCH ×2 (09:59→20:43)
[2020-11-06] MEDS: Lantus 1000 UNITS/10 ML VIAL SC SCH ×2 (10:01→20:45)
[2020-11-06] MEDS: Sodium Bicarbonate Tab 325 MG TAB PO SCH ×2 (10:03→20:42)
[2020-11-06] MEDS: methylPREDNISolone Sod Succ/PF 125 MG in Sodium Chloride 0.9% 250 ML 250 ML IVPB SCH (15:28)
[2020-11-06] MEDS: Cholecalciferol 1,000 UNITS (25 MCG) TAB PO SCH (20:42)
[2020-11-06] MEDS: Atorvastatin Calcium 40 MG TAB PO SCH (20:43)
[2020-11-06] MEDS: Enoxaparin Sodium 60 MG/0.6 ML SYRINGE SC SCH (20:43)
[2020-11-06] MEDS ORDERED: Furosemide 100 MG/10 ML VIAL SLOW IVP SCH (20:45)
[2020-11-06] MEDS: Temazepam 15 MG CAP PO PRN (22:11)
[2020-11-07] MEDS: Lorazepam 0.5 MG TAB PO PRN ×3 (00:14→17:34)
[2020-11-07] MEDS: HumaLOG 300 UNITS/3 ML VIAL SC PRN ×4 (00:32→17:40)
[2020-11-07 03:40] LABS: #Basophils 0.1 thou/uL (0.0-0.2); #Lymphocytes 0.7 thou/uL (1.20-3.40); #Monocytes 0.1 thou/uL (0.11-0.59); #Neutrophils 9.6 thou/uL (1.40-6.50); %Basophils 1.1 % (0.0-1.0); %Eosinophils 0.2 % (0.0-10.0); %Lymphocytes 6.2 % (21.0-51.0); %Monocytes 0.8 % (0.0-10.0); %Neutrophils 91.7 % (42.0-75.0); Hemoglobin 15.7 g/dL (14.0-18.0); Mean Corpuscular HGB CONC 33.2 g/dL (32.0-36.0); Mean Corpuscular Hemoglobin 27.3 pg (27.0-31.0); Mean Platelet Volume 9.8 fL (7.4-10.4); Platelet Count 220 thou/uL (130-400); RBC Distribution Width 13.3 % (11.5-14.5); Red Blood Cell (RBC) Count 5.77 mill/uL (4.70-6.10); White Blood Cell (WBC) Count 10.4 thou/uL (4.8-10.8)
[2020-11-07 03:48] LABS: Anion Gap 14 mmol/L (10-20); BUN (Urea Nitrogen) 43 mg/dL (8.4-25.7); Calc. Creatinine Clearance 63 mL/min (70-130); Calcium 8.3 mg/dL (7.8-10.44); Carbon Dioxide 22 mmol/L (23-31); Chloride 108 mmol/L (98-107); Glucose 228 mg/dL (83-110); Potassium 4.2 mmol/L (3.5-5.1); Sodium 140 mmol/L (136-145)
[2020-11-07] MEDS: Colchicine 0.6 MG TAB PO SCH (09:34)
[2020-11-07] MEDS: Zinc Sulfate 220 MG CAP PO SCH (09:34)
[2020-11-07] MEDS: Ascorbic Acid 500 mg Chewable Tablet PO SCH ×2 (09:34→21:46)
[2020-11-07] MEDS: Aspirin 325 MG TAB PO SCH (09:35)
[2020-11-07] MEDS: Sodium Bicarbonate Tab 325 MG TAB PO SCH ×2 (09:35→21:46)
[2020-11-07] MEDS: Lantus 1000 UNITS/10 ML VIAL SC SCH ×2 (09:36→21:48)
[2020-11-07] MEDS: Pantoprazole 40 MG VIAL IVP SCH ×2 (09:36→21:45)
[2020-11-07] MEDS: Carvedilol 6.25 MG TAB PO SCH (09:40)
[2020-11-07] MEDS: ALPRAZolam 0.25 MG TAB PO SCH ×2 (09:41→21:47)
[2020-11-07] MEDS ORDERED: Amlodipine 5 MG TAB PO SCH (09:45)
[2020-11-07] MEDS: methylPREDNISolone Sod Succ/PF 125 MG in Sodium Chloride 0.9% 250 ML 250 ML IVPB SCH (14:07)
[2020-11-07] MEDS: Enoxaparin Sodium 60 MG/0.6 ML SYRINGE SC SCH (21:45)
[2020-11-07] MEDS: Atorvastatin Calcium 40 MG TAB PO SCH (21:47)
[2020-11-07] MEDS: Melatonin 3 MG TAB PO PRN (21:47)
[2020-11-07] MEDS: Temazepam 15 MG CAP PO PRN (21:47)
[2020-11-07] MEDS: Cholecalciferol 1,000 UNITS (25 MCG) TAB PO SCH (21:47)
[2020-11-07] MEDS: Senokot S 8.6-50 MG TAB PO PRN (21:47)
[2020-11-08] MEDS: HumaLOG 300 UNITS/3 ML VIAL SC PRN ×3 (00:08→17:04)
[2020-11-08] MEDS: Lorazepam 0.5 MG TAB PO PRN ×5 (01:17→21:05)
[2020-11-08 04:19] LABS: Anion Gap 13 mmol/L (10-20); BUN (Urea Nitrogen) 40 mg/dL (8.4-25.7); Calc. Creatinine Clearance 69 mL/min (70-130); Calcium 8.4 mg/dL (7.8-10.44); Carbon Dioxide 22 mmol/L (23-31); Chloride 111 mmol/L (98-107); Glucose 139 mg/dL (83-110); Potassium 4.4 mmol/L (3.5-5.1); Sodium 142 mmol/L (136-145)
[2020-11-08] MEDS ORDERED: Furosemide 40 MG/4 ML VIAL SLOW IVP SCH (07:45)
[2020-11-08] MEDS: ALPRAZolam 0.25 MG TAB PO SCH ×2 (08:30→21:05)
[2020-11-08] MEDS ORDERED: Amlodipine 5 MG TAB PO SCH (09:00)
[2020-11-08] MEDS: Pantoprazole 40 MG VIAL IVP SCH ×2 (10:14→21:05)
[2020-11-08] MEDS: Sodium Bicarbonate Tab 325 MG TAB PO SCH ×2 (10:14→21:05)
[2020-11-08] MEDS: Ascorbic Acid 500 mg Chewable Tablet PO SCH ×2 (10:14→21:05)
[2020-11-08] MEDS: Aspirin 325 MG TAB PO SCH (10:14)
[2020-11-08] MEDS: Zinc Sulfate 220 MG CAP PO SCH (10:14)
[2020-11-08] MEDS: Colchicine 0.6 MG TAB PO SCH (10:14)
[2020-11-08] MEDS: Lantus 1000 UNITS/10 ML VIAL SC SCH ×2 (10:15→21:07)
[2020-11-08] MEDS: Carvedilol 3.125 MG TAB PO SCH ×2 (10:15→17:04)
[2020-11-08] MEDS: methylPREDNISolone Sod Succ/PF 125 MG in Sodium Chloride 0.9% 250 ML 250 ML IVPB SCH (17:06)
[2020-11-08] MEDS: Melatonin 3 MG TAB PO PRN (21:05)
[2020-11-08] MEDS: Enoxaparin Sodium 60 MG/0.6 ML SYRINGE SC SCH (21:05)
[2020-11-08] MEDS: Cholecalciferol 1,000 UNITS (25 MCG) TAB PO SCH (21:05)
[2020-11-08] MEDS: Atorvastatin Calcium 40 MG TAB PO SCH (21:05)
[2020-11-09] MEDS: HumaLOG 300 UNITS/3 ML VIAL SC PRN (00:40)
[2020-11-09] MEDS: Lorazepam 0.5 MG TAB PO PRN (02:34)
[2020-11-09 06:56] LABS: Albumin 2.5 g/dL (3.4-4.8); Phosphorus 2.9 mg/dL (2.3-4.7)
[2020-11-09 06:59] LABS: Anion Gap 12 mmol/L (10-20); BUN (Urea Nitrogen) 36 mg/dL (8.4-25.7); Calc. Creatinine Clearance 76 mL/min (70-130); Calcium 8.5 mg/dL (7.8-10.44); Carbon Dioxide 24 mmol/L (23-31); Chloride 110 mmol/L (98-107); Glucose 92 mg/dL (83-110); Magnesium 1.9 mg/dL (1.6-2.6); Potassium 4.1 mmol/L (3.5-5.1); Sodium 142 mmol/L (136-145)
[2020-11-09] MEDS: Sodium Bicarbonate Tab 325 MG TAB PO SCH ×2 (08:18→20:42)
[2020-11-09] MEDS: Pantoprazole 40 MG VIAL IVP SCH ×2 (08:18→20:43)
[2020-11-09] MEDS: Ascorbic Acid 500 mg Chewable Tablet PO SCH ×2 (08:18→20:42)
[2020-11-09] MEDS: Colchicine 0.6 MG TAB PO SCH (08:18)
[2020-11-09] MEDS: ALPRAZolam 0.25 MG TAB PO SCH (08:18)
[2020-11-09] MEDS: Zinc Sulfate 220 MG CAP PO SCH (08:18)
[2020-11-09] MEDS: Torsemide 10 MG TAB PO SCH (08:18)
[2020-11-09] MEDS: Carvedilol 3.125 MG TAB PO SCH ×2 (08:18→17:45)
[2020-11-09] MEDS: Aspirin 325 MG TAB PO SCH (08:18)
[2020-11-09] MEDS: Lantus 1000 UNITS/10 ML VIAL SC SCH (08:18)
[2020-11-09] MEDS: methylPREDNISolone Sod Succ/PF 125 MG in Sodium Chloride 0.9% 250 ML 250 ML IVPB SCH (17:53)
[2020-11-09] MEDS: Cholecalciferol 1,000 UNITS (25 MCG) TAB PO SCH (20:42)
[2020-11-09] MEDS: Atorvastatin Calcium 40 MG TAB PO SCH (20:42)
[2020-11-09] MEDS: Enoxaparin Sodium 60 MG/0.6 ML SYRINGE SC SCH (20:43)
[2020-11-09] MEDS ORDERED: ALPRAZolam 0.25 MG TAB PO SCH (21:00)
[2020-11-10] MEDS: Lantus 1000 UNITS/10 ML VIAL SC SCH ×3 (02:34→21:00)
[2020-11-10 04:02] LABS: Anion Gap 10 mmol/L (10-20); BUN (Urea Nitrogen) 34 mg/dL (8.4-25.7); Calc. Creatinine Clearance 83 mL/min (70-130); Calcium 8.3 mg/dL (7.8-10.44); Carbon Dioxide 23 mmol/L (23-31); Chloride 111 mmol/L (98-107); Glucose 103 mg/dL (83-110); Potassium 4.7 mmol/L (3.5-5.1); Sodium 139 mmol/L (136-145)
[2020-11-10] MEDS: Aspirin 325 MG TAB PO SCH (07:39)
[2020-11-10] MEDS: Sodium Bicarbonate Tab 325 MG TAB PO SCH ×2 (07:39→20:59)
[2020-11-10] MEDS: Torsemide 10 MG TAB PO SCH (07:40)
[2020-11-10] MEDS: Colchicine 0.6 MG TAB PO SCH (07:40)
[2020-11-10] MEDS: Carvedilol 3.125 MG TAB PO SCH ×2 (07:40→17:12)
[2020-11-10] MEDS: Zinc Sulfate 220 MG CAP PO SCH (07:40)
[2020-11-10] MEDS: Ascorbic Acid 500 mg Chewable Tablet PO SCH ×2 (07:40→20:59)
[2020-11-10] MEDS: Pantoprazole 40 MG VIAL IVP SCH ×2 (07:41→20:59)
[2020-11-10] MEDS: Lorazepam 0.5 MG TAB PO PRN (14:25)
[2020-11-10] MEDS: methylPREDNISolone Sod Succ 40 MG VIAL IVP SCH (20:59)
[2020-11-10] MEDS: Enoxaparin Sodium 60 MG/0.6 ML SYRINGE SC SCH (20:59)
[2020-11-10] MEDS: Cholecalciferol 1,000 UNITS (25 MCG) TAB PO SCH (20:59)
[2020-11-10] MEDS: Atorvastatin Calcium 40 MG TAB PO SCH (21:00)
[2020-11-11 03:42] LABS: #Eosinphils 0.1 thou/uL (0.0-0.7); #Lymphocytes 0.8 thou/uL (1.20-3.40); #Monocytes 0.1 thou/uL (0.11-0.59); #Neutrophils 7.2 thou/uL (1.40-6.50); %Basophils 0.2 % (0.0-1.0); %Eosinophils 1.2 % (0.0-10.0); %Lymphocytes 9.8 % (21.0-51.0); %Monocytes 1.2 % (0.0-10.0); %Neutrophils 87.7 % (42.0-75.0); Mean Corpuscular HGB CONC 32.5 g/dL (32.0-36.0); Mean Corpuscular Hemoglobin 26.9 pg (27.0-31.0); Mean Corpuscular Volume 82.9 fL (78.0-98.0); Mean Platelet Volume 9.1 fL (7.4-10.4); Platelet Count 193 thou/uL (130-400); RBC Distribution Width 14.1 % (11.5-14.5); Red Blood Cell (RBC) Count 5.94 mill/uL (4.70-6.10); White Blood Cell (WBC) Count 8.2 thou/uL (4.8-10.8)
[2020-11-11 04:01] LABS: Anion Gap 13 mmol/L (10-20); BUN (Urea Nitrogen) 39 mg/dL (8.4-25.7); Calc. Creatinine Clearance 66 mL/min (70-130); Calcium 8.6 mg/dL (7.8-10.44); Carbon Dioxide 20 mmol/L (23-31); Chloride 109 mmol/L (98-107); Glucose 271 mg/dL (83-110); Sodium 137 mmol/L (136-145)
[2020-11-11 04:43] LABS: Actual Bicarbonate (HCO3a) 20.8 mEq/L (22-28); Base Excess (BEa) -2.2 mEq/L (-2.0 to +3.0); CO2 Tension 31.6 mmHg (35.0-45.0); Calcium, Ionized (arterial) 1.19 mmol/L (1.12-1.30); Carboxyhemoglobin (COHb) 1.2 gm% (0.0-3.0); Hemoglobin (Hb) 16.3 g/dL (14.0-18.0); Potassium - ABG Lab 4.74 mmol/L (3.70-5.30); pH, Arterial 7.44 (7.35-7.45)
[2020-11-11 04:44] LABS: O2 Tension (PaO2), arterial 43.8 mmHg (> 70.0); Puncture Site RRA
[2020-11-11] MEDS: Lorazepam 0.5 MG TAB PO PRN (04:45)
[2020-11-11] MEDS ORDERED: Furosemide 20 MG/2 ML VIAL SLOW IVP SCH (06:00)
[2020-11-11] MEDS: HumaLOG 300 UNITS/3 ML VIAL SC PRN ×3 (06:48→15:37)
[2020-11-11] MEDS: Acetaminophen 325 MG TAB PO PRN (07:47)
[2020-11-11] MEDS: Carvedilol 3.125 MG TAB PO SCH ×2 (07:47→15:41)
[2020-11-11] MEDS: Lantus 1000 UNITS/10 ML VIAL SC SCH ×2 (09:20→21:15)
[2020-11-11] MEDS: Zinc Sulfate 220 MG CAP PO SCH (09:24)
[2020-11-11] MEDS: Pantoprazole 40 MG VIAL IVP SCH ×2 (09:25→21:15)
[2020-11-11] MEDS: Aspirin 325 MG TAB PO SCH (09:25)
[2020-11-11] MEDS: Ascorbic Acid 500 mg Chewable Tablet PO SCH ×2 (09:25→21:21)
[2020-11-11] MEDS: Sodium Bicarbonate Tab 325 MG TAB PO SCH ×2 (09:25→21:20)
[2020-11-11] MEDS: ALPRAZolam 0.25 MG TAB PO SCH ×2 (09:26→20:21)
[2020-11-11] MEDS: Colchicine 0.6 MG TAB PO SCH (09:26)
[2020-11-11] MEDS: methylPREDNISolone Sod Succ 40 MG VIAL IVP SCH ×2 (09:26→20:30)
[2020-11-11] MEDS: Torsemide 10 MG TAB PO SCH (09:36)
[2020-11-11] MEDS: ALPRAZolam 0.25 MG TAB PO PRN (15:36)
[2020-11-11] MEDS: Enoxaparin Sodium 60 MG/0.6 ML SYRINGE SC SCH (21:16)
[2020-11-11] MEDS: Cholecalciferol 1,000 UNITS (25 MCG) TAB PO SCH (21:20)
[2020-11-11] MEDS: Atorvastatin Calcium 40 MG TAB PO SCH (21:22)
[2020-11-11] MEDS ORDERED: ALPRAZolam 0.25 MG TAB PO PRN (22:49)
[2020-11-12] MEDS: ALPRAZolam 0.25 MG TAB PO PRN ×2 (03:13→15:26)
[2020-11-12] MEDS: Acetaminophen 325 MG TAB PO PRN ×2 (03:34→07:19)
[2020-11-12 08:04] LABS: Albumin 2.2 g/dL (3.4-4.8); Anion Gap 13 mmol/L (10-20); BUN (Urea Nitrogen) 33 mg/dL (8.4-25.7); Calc. Creatinine Clearance 81 mL/min (70-130); Calcium 8.1 mg/dL (7.8-10.44); Carbon Dioxide 21 mmol/L (23-31); Chloride 106 mmol/L (98-107); Glucose 106 mg/dL (83-110); Phosphorus 3.5 mg/dL (2.3-4.7); Potassium 4.5 mmol/L (3.5-5.1); Sodium 135 mmol/L (136-145)
[2020-11-12] MEDS: methylPREDNISolone Sod Succ 40 MG VIAL IVP SCH ×2 (09:02→20:27)
[2020-11-12] MEDS: Zinc Sulfate 220 MG CAP PO SCH (09:03)
[2020-11-12] MEDS: Sodium Bicarbonate Tab 325 MG TAB PO SCH ×2 (09:03→20:27)
[2020-11-12] MEDS: Aspirin 325 MG TAB PO SCH (09:03)
[2020-11-12] MEDS: Colchicine 0.6 MG TAB PO SCH (09:04)
[2020-11-12] MEDS: ALPRAZolam 0.25 MG TAB PO SCH ×2 (09:04→20:27)
[2020-11-12] MEDS: Ascorbic Acid 500 mg Chewable Tablet PO SCH ×2 (09:04→20:27)
[2020-11-12] MEDS: Carvedilol 3.125 MG TAB PO SCH ×2 (09:16→15:26)
[2020-11-12] MEDS: Lantus 1000 UNITS/10 ML VIAL SC SCH ×2 (09:17→20:28)
[2020-11-12] MEDS: Enoxaparin Sodium 60 MG/0.6 ML SYRINGE SC SCH (20:27)
[2020-11-12] MEDS: Atorvastatin Calcium 40 MG TAB PO SCH (20:27)
[2020-11-12] MEDS: Melatonin 3 MG TAB PO PRN (20:27)
[2020-11-12] MEDS: Cholecalciferol 1,000 UNITS (25 MCG) TAB PO SCH (20:28)
[2020-11-12] MEDS: HumaLOG 300 UNITS/3 ML VIAL SC PRN (20:29)
[2020-11-13] MEDS: ALPRAZolam 0.25 MG TAB PO PRN (01:00)
[2020-11-13 03:46] LABS: Albumin 2.1 g/dL (3.4-4.8); Anion Gap 12 mmol/L (10-20); BUN (Urea Nitrogen) 30 mg/dL (8.4-25.7); BUN/Creatinine Ratio 28.57; Calc. Creatinine Clearance 88 mL/min (70-130); Calcium 7.9 mg/dL (7.8-10.44); Carbon Dioxide 20 mmol/L (23-31); Chloride 105 mmol/L (98-107); Glucose 95 mg/dL (83-110); Phosphorus 3.4 mg/dL (2.3-4.7); Potassium 4.5 mmol/L (3.5-5.1); Sodium 132 mmol/L (136-145)
[2020-11-13] MEDS: Ascorbic Acid 500 mg Chewable Tablet PO SCH ×2 (08:15→20:33)
[2020-11-13] MEDS: Colchicine 0.6 MG TAB PO SCH (08:17)
[2020-11-13] MEDS: ALPRAZolam 0.25 MG TAB PO SCH (08:18)
[2020-11-13] MEDS: methylPREDNISolone Sod Succ 40 MG VIAL IVP SCH ×2 (08:21→20:32)
[2020-11-13] MEDS: Carvedilol 3.125 MG TAB PO SCH ×2 (08:25→17:48)
[2020-11-13] MEDS: Lantus 1000 UNITS/10 ML VIAL SC SCH ×2 (09:45→20:34)
[2020-11-13] MEDS: Aspirin 325 MG TAB PO SCH (09:45)
[2020-11-13] MEDS: Sodium Bicarbonate Tab 325 MG TAB PO SCH ×2 (09:46→20:33)
[2020-11-13] MEDS: Zinc Sulfate 220 MG CAP PO SCH (09:46)
[2020-11-13] MEDS ORDERED: Succinylcholine 200 MG/10 ml SYRINGE FS ONE (09:48)
[2020-11-13] MEDS ORDERED: PROPOFOL 200 MG/20 ML VIAL ONE (09:48)
[2020-11-13] MEDS ORDERED: Propofol 1,000 MG/100 ML VIAL IV ONE (10:49)
[2020-11-13] MEDS ORDERED: Fentanyl CADD 100 ML ONE (10:49)
[2020-11-13] MEDS ORDERED: Ventilator Sedation Protocol 1 EACH FS SCH (11:15)
[2020-11-13] MEDS ORDERED: Propofol BOLUS 1,000 MG/100 ML VIAL IV PRN ×2 (11:30→16:15)
[2020-11-13] MEDS ORDERED: DISCONTINUE PREVIOUS NARCOTIC PAIN MEDICATIONS AND BENZODIAZEPINES FS SCH ×2 (11:30→16:15)
[2020-11-13] MEDS ORDERED: Morphine 2 MG/ML VIAL SLOW IVP PRN ×2 (11:30→16:15)
[2020-11-13] MEDS ORDERED: Fentanyl BOLUS 250 ML IVPB PRN ×2 (11:30→16:15)
[2020-11-13 12:09] LABS: Actual Bicarbonate (HCO3a) 18.1 mEq/L (22-28); Base Excess (BEa) -5.8 mEq/L (-2.0 to +3.0); CO2 Tension 31.4 mmHg (35.0-45.0); Calcium, Ionized (arterial) 1.13 mmol/L (1.12-1.30); Potassium - ABG Lab 4.17 mmol/L (3.70-5.30); pH, Arterial 7.38 (7.35-7.45)
[2020-11-13] MEDS: Lorazepam 2 MG/ML VIAL SLOW IVP PRN ×3 (12:13→15:42)
[2020-11-13] MEDS ORDERED: Furosemide 40 MG/4 ML VIAL SLOW IVP SCH (12:15)
[2020-11-13 12:18] LABS: O2 Tension (PaO2), arterial 55.5 mmHg (> 70.0); Puncture Site RRA
[2020-11-13] MEDS: Vecuronium 10 MG VIAL IV PRN ×3 (13:45→16:21)
[2020-11-13] MEDS ORDERED: Ventilator Sedation Protocol 1 EACH FS ONE (15:59)
[2020-11-13] MEDS ORDERED: Sodium Chloride 0.9% (PF) 10 ML VIAL FS PRN (16:15)
[2020-11-13] MEDS: Propofol 1,000 MG/100 ML VIAL IV PRN ×2 (17:18→23:47)
[2020-11-13] MEDS: Albuterol Sulfate 2.5 mg/3 ml Neb NEB SCH (19:18)
[2020-11-13] MEDS: Pantoprazole 40 MG VIAL IVP SCH (20:33)
[2020-11-13] MEDS: Cholecalciferol 1,000 UNITS (25 MCG) TAB PO SCH (20:33)
[2020-11-13] MEDS: Enoxaparin Sodium 60 MG/0.6 ML SYRINGE SC SCH (20:33)
[2020-11-13] MEDS: Atorvastatin Calcium 40 MG TAB PO SCH (20:33)
[2020-11-13] MEDS ORDERED: Pantoprazole 40 MG VIAL IVP SCH (21:00)
[2020-11-14] MEDS: Acetaminophen 325 MG TAB PO PRN (00:40)
[2020-11-14 03:19] LABS: Band 1 % (5-11); Hemoglobin 15.3 g/dL (14.0-18.0); Lymphocytes 3 % (21-51); MDiff Complete? YES; Mean Corpuscular HGB CONC 33.1 g/dL (32.0-36.0); Mean Corpuscular Hemoglobin 27.8 pg (27.0-31.0); Mean Platelet Volume 8.8 fL (7.4-10.4); Monocytes 1 % (0-10); Neutrophil 95 % (42-75); Platelet Count 152 thou/uL (130-400); Platelet Morphology Comment Appears Adequate; RBC Distribution Width 14.1 % (11.5-14.5); RBC Morphology Normal; Red Blood Cell (RBC) Count 5.49 mill/uL (4.70-6.10)
[2020-11-14 03:36] LABS: Anion Gap 14 mmol/L (10-20); BUN (Urea Nitrogen) 39 mg/dL (8.4-25.7); Calc. Creatinine Clearance 64 mL/min (70-130); Calcium 8.2 mg/dL (7.8-10.44); Carbon Dioxide 19 mmol/L (23-31); Chloride 104 mmol/L (98-107); Glucose 178 mg/dL (83-110); Potassium 5.2 mmol/L (3.5-5.1); Sodium 132 mmol/L (136-145)
[2020-11-14] MEDS: HumaLOG 300 UNITS/3 ML VIAL SC PRN ×4 (04:45→22:17)
[2020-11-14] MEDS: Albuterol Sulfate 2.5 mg/3 ml Neb NEB SCH ×3 (08:00→19:33)
[2020-11-14] MEDS ORDERED: Fentanyl CADD 100 ML ONE ×2 (08:05→19:34)
[2020-11-14] MEDS: Fentanyl CADD 100 ML IV SCH (08:08)
[2020-11-14] MEDS: Aspirin 325 MG TAB PO SCH (08:17)
[2020-11-14] MEDS: Pantoprazole 40 MG VIAL IVP SCH ×2 (08:17→20:04)
[2020-11-14] MEDS: Ascorbic Acid 500 mg Chewable Tablet PO SCH ×2 (08:17→20:03)
[2020-11-14] MEDS: Enoxaparin Sodium 60 MG/0.6 ML SYRINGE SC SCH ×2 (08:17→20:04)
[2020-11-14] MEDS: Sodium Bicarbonate Tab 325 MG TAB PO SCH ×2 (08:17→20:03)
[2020-11-14] MEDS: Colchicine 0.6 MG TAB PO SCH (08:17)
[2020-11-14] MEDS: Propofol 1,000 MG/100 ML VIAL IV PRN ×3 (08:22→21:42)
[2020-11-14] MEDS: Albumin 25% 25 GM/100 ML BOT IVPB SCH ×3 (08:29→20:05)
[2020-11-14] MEDS: methylPREDNISolone Sod Succ 40 MG VIAL IVP SCH ×2 (08:29→20:04)
[2020-11-14 08:53] LABS: Actual Bicarbonate (HCO3a) 27.2 mEq/L (22-28); Base Excess (BEa) 1.3 mEq/L (-2.0 to +3.0); CO2 Tension 47.3 mmHg (35.0-45.0); Calcium, Ionized (arterial) 1.17 mmol/L (1.12-1.30); Carboxyhemoglobin (COHb) 0.3 gm% (0.0-3.0); Hemoglobin (Hb) 15.4 g/dL (14.0-18.0); O2 Tension (PaO2), arterial 70.9 mmHg (> 70.0); Potassium - ABG Lab 4.49 mmol/L (3.70-5.30); pH, Arterial 7.38 (7.35-7.45)
[2020-11-14 08:58] LABS: ALV-art Gradient 582.975 mmHg (0-20); Puncture Site RRA
[2020-11-14] MEDS: Carvedilol 3.125 MG TAB PO SCH ×2 (09:35→16:15)
[2020-11-14] MEDS: Lantus 1000 UNITS/10 ML VIAL SC SCH ×2 (09:41→20:38)
[2020-11-14 16:41] LABS: Albumin 2.9 g/dL (3.4-4.8); Anion Gap 12 mmol/L (10-20); BUN (Urea Nitrogen) 39 mg/dL (8.4-25.7); BUN/Creatinine Ratio 29.55; Calc. Creatinine Clearance 69 mL/min (70-130); Calcium 8.6 mg/dL (7.8-10.44); Carbon Dioxide 26 mmol/L (23-31); Chloride 102 mmol/L (98-107); Glucose 241 mg/dL (83-110); Phosphorus 3.2 mg/dL (2.3-4.7); Potassium 4.6 mmol/L (3.5-5.1); Sodium 135 mmol/L (136-145)
[2020-11-14] MEDS: Atorvastatin Calcium 40 MG TAB PO SCH (20:03)
[2020-11-14] MEDS: Cholecalciferol 1,000 UNITS (25 MCG) TAB PO SCH (20:03)
[2020-11-14] MEDS: Lorazepam 2 MG/ML VIAL SLOW IVP PRN (21:42)
[2020-11-15] MEDS: Fentanyl CADD 100 ML IV SCH ×2 (00:28→17:01)
[2020-11-15 03:53] LABS: Anion Gap 8 mmol/L (10-20); BUN (Urea Nitrogen) 40 mg/dL (8.4-25.7); Calc. Creatinine Clearance 80 mL/min (70-130); Calcium 8.7 mg/dL (7.8-10.44); Carbon Dioxide 30 mmol/L (23-31); Chloride 102 mmol/L (98-107); Glucose 297 mg/dL (83-110); Sodium 136 mmol/L (136-145)
[2020-11-15 03:54] LABS: Hemoglobin 11.7 g/dL (14.0-18.0); Lymphocytes 6 % (21-51); MDiff Complete? YES; Mean Corpuscular HGB CONC 33.2 g/dL (32.0-36.0); Mean Corpuscular Hemoglobin 28.2 pg (27.0-31.0); Mean Corpuscular Volume 85.1 fL (78.0-98.0); Mean Platelet Volume 8.6 fL (7.4-10.4); Monocytes 1 % (0-10); Neutrophil 93 % (42-75); Platelet Count 146 thou/uL (130-400); Platelet Morphology Comment Appears Adequate; RBC Distribution Width 14.3 % (11.5-14.5); Red Blood Cell (RBC) Count 4.14 mill/uL (4.70-6.10); White Blood Cell (WBC) Count 5.8 thou/uL (4.8-10.8)
[2020-11-15] MEDS: Lorazepam 2 MG/ML VIAL SLOW IVP PRN ×4 (04:28→17:59)
[2020-11-15] MEDS: Propofol 1,000 MG/100 ML VIAL IV PRN ×2 (04:28→16:32)
[2020-11-15] MEDS: HumaLOG 300 UNITS/3 ML VIAL SC PRN ×4 (04:52→19:58)
[2020-11-15] MEDS: Albuterol Sulfate 2.5 mg/3 ml Neb NEB SCH ×3 (07:44→20:06)
[2020-11-15] MEDS: Enoxaparin Sodium 60 MG/0.6 ML SYRINGE SC SCH ×2 (08:03→20:19)
[2020-11-15] MEDS: Pantoprazole 40 MG VIAL IVP SCH ×3 (08:04→20:33)
[2020-11-15] MEDS: methylPREDNISolone Sod Succ 40 MG VIAL IVP SCH ×2 (08:06→20:22)
[2020-11-15] MEDS: Sodium Bicarbonate Tab 325 MG TAB PO SCH ×2 (08:07→20:19)
[2020-11-15] MEDS: Ascorbic Acid 500 mg Chewable Tablet PO SCH ×2 (08:07→20:19)
[2020-11-15] MEDS: Aspirin 325 MG TAB PO SCH (08:08)
[2020-11-15] MEDS: Colchicine 0.6 MG TAB PO SCH (08:08)
[2020-11-15 08:10] LABS: Actual Bicarbonate (HCO3a) 30.6 mEq/L (22-28); Base Excess (BEa) 3.9 mEq/L (-2.0 to +3.0); CO2 Tension 55.3 mmHg (35.0-45.0); Carboxyhemoglobin (COHb) 0.6 gm% (0.0-3.0); Hemoglobin (Hb) 12.8 g/dL (14.0-18.0); Potassium - ABG Lab 3.69 mmol/L (3.70-5.30); pH, Arterial 7.36 (7.35-7.45)
[2020-11-15] MEDS: Lantus 1000 UNITS/10 ML VIAL SC SCH ×2 (08:10→19:58)
[2020-11-15 08:12] LABS: O2 Tension (PaO2), arterial 58.1 mmHg (> 70.0)
[2020-11-15 08:13] LABS: ALV-art Gradient 229.275 mmHg (0-20); Puncture Site RBA
[2020-11-15] MEDS: Carvedilol 3.125 MG TAB PO SCH ×2 (08:34→17:07)
[2020-11-15] MEDS ORDERED: Torsemide 10 MG TAB PER TUBE SCH (11:30)
[2020-11-15] MEDS ORDERED: Fentanyl CADD 100 ML ONE (16:55)
[2020-11-15] MEDS: Atorvastatin Calcium 40 MG TAB PO SCH (20:19)
[2020-11-15] MEDS: Cholecalciferol 1,000 UNITS (25 MCG) TAB PO SCH (20:20)
[2020-11-16] MEDS: Propofol 1,000 MG/100 ML VIAL IV PRN ×4 (00:10→23:03)
[2020-11-16] MEDS: HumaLOG 300 UNITS/3 ML VIAL SC PRN ×4 (03:34→21:03)
[2020-11-16 03:56] VITALS: BMI 29.0
[2020-11-16] MEDS: Albuterol Sulfate 2.5 mg/3 ml Neb NEB SCH ×3 (07:22→18:50)
[2020-11-16 07:56] LABS: Actual Bicarbonate (HCO3a) 36.2 mEq/L (22-28); Base Excess (BEa) 9.6 mEq/L (-2.0 to +3.0); CO2 Tension 57.9 mmHg (35.0-45.0); Calcium, Ionized (arterial) 1.21 mmol/L (1.12-1.30); Carboxyhemoglobin (COHb) 1.3 gm% (0.0-3.0); Hemoglobin (Hb) 13.2 g/dL (14.0-18.0); Potassium - ABG Lab 3.92 mmol/L (3.70-5.30); pH, Arterial 7.41 (7.35-7.45)
[2020-11-16 08:04] LABS: O2 Tension (PaO2), arterial 49.7 mmHg (> 70.0); Puncture Site RRA
[2020-11-16 08:05] LABS: ALV-art Gradient 198.775 mmHg (0-20)
[2020-11-16] MEDS ORDERED: Torsemide 10 MG TAB PER TUBE SCH (09:00)
[2020-11-16] MEDS: Sodium Bicarbonate Tab 325 MG TAB PO SCH ×2 (09:26→21:00)
[2020-11-16] MEDS: Lantus 1000 UNITS/10 ML VIAL SC SCH ×2 (09:26→21:00)
[2020-11-16] MEDS: Pantoprazole 40 MG VIAL IVP SCH ×2 (09:26→21:00)
[2020-11-16] MEDS: Aspirin 325 MG TAB PO SCH (09:26)
[2020-11-16] MEDS: Ascorbic Acid 500 mg Chewable Tablet PO SCH ×2 (09:26→21:00)
[2020-11-16] MEDS: Carvedilol 3.125 MG TAB PO SCH ×2 (09:27→16:34)
[2020-11-16] MEDS: methylPREDNISolone Sod Succ 40 MG VIAL IVP SCH ×2 (09:28→21:00)
[2020-11-16] MEDS: Enoxaparin Sodium 60 MG/0.6 ML SYRINGE SC SCH ×2 (09:28→21:00)
[2020-11-16 11:02] LABS: Hemoglobin 13.5 g/dL (14.0-18.0); Mean Corpuscular HGB CONC 32.7 g/dL (32.0-36.0); Mean Corpuscular Hemoglobin 27.9 pg (27.0-31.0); Mean Corpuscular Volume 85.5 fL (78.0-98.0); Mean Platelet Volume 8.9 fL (7.4-10.4); Platelet Count 151 thou/uL (130-400); RBC Distribution Width 14.7 % (11.5-14.5); Red Blood Cell (RBC) Count 4.83 mill/uL (4.70-6.10); White Blood Cell (WBC) Count 4.6 thou/uL (4.8-10.8)
[2020-11-16 11:05] LABS: Anion Gap 12 mmol/L (10-20); BUN (Urea Nitrogen) 34 mg/dL (8.4-25.7); Calc. Creatinine Clearance 108 mL/min (70-130); Carbon Dioxide 31 mmol/L (23-31); Chloride 103 mmol/L (98-107); Glucose 195 mg/dL (83-110); Potassium 3.9 mmol/L (3.5-5.1); Sodium 142 mmol/L (136-145)
[2020-11-16 11:36] LABS: Band 8 % (5-11); Eosinophils 7 % (0-10); Lymphocytes 18 % (21-51); MDiff Complete? YES; Monocytes 4 % (0-10); Neutrophil 63 % (42-75); Platelet Morphology Comment Appears Adequate; RBC Morphology Normal
[2020-11-16] MEDS: Colchicine 0.6 MG TAB PO SCH (12:06)
[2020-11-16] MEDS ORDERED: Fentanyl CADD 100 ML ONE (13:13)
[2020-11-16] MEDS: Fentanyl CADD 100 ML IV SCH (13:16)
[2020-11-16] MEDS ORDERED: CEFAZOLIN 2 GM in Premix Bag 1 BAG IVPB SCH (20:00)
[2020-11-16] MEDS: Cholecalciferol 1,000 UNITS (25 MCG) TAB PO SCH (21:00)
[2020-11-16] MEDS: Lorazepam 2 MG/ML VIAL SLOW IVP PRN (21:00)
[2020-11-16] MEDS: Atorvastatin Calcium 40 MG TAB PO SCH (21:00)
[2020-11-17 03:43] LABS: Anion Gap 8 mmol/L (10-20); BUN (Urea Nitrogen) 34 mg/dL (8.4-25.7); Calc. Creatinine Clearance 120 mL/min (70-130); Calcium 8.8 mg/dL (7.8-10.44); Carbon Dioxide 35 mmol/L (23-31); Chloride 101 mmol/L (98-107); Glucose 195 mg/dL (83-110); Potassium 4.2 mmol/L (3.5-5.1); Sodium 140 mmol/L (136-145)
[2020-11-17] MEDS: HumaLOG 300 UNITS/3 ML VIAL SC PRN (04:03)
[2020-11-17 04:34] LABS: Band 10 % (5-11); Eosinophils 3 % (0-10); Hemoglobin 12.7 g/dL (14.0-18.0); Lymphocytes 9 % (21-51); MDiff Complete? YES; Mean Corpuscular HGB CONC 31.7 g/dL (32.0-36.0); Mean Corpuscular Hemoglobin 27.3 pg (27.0-31.0); Mean Platelet Volume 8.8 fL (7.4-10.4); Monocytes 3 % (0-10); Neutrophil 75 % (42-75); Platelet Count 174 thou/uL (130-400); RBC Distribution Width 14.6 % (11.5-14.5); Red Blood Cell (RBC) Count 4.67 mill/uL (4.70-6.10); White Blood Cell (WBC) Count 3.9 thou/uL (4.8-10.8)
[2020-11-17] MEDS: Propofol 1,000 MG/100 ML VIAL IV PRN ×3 (06:09→19:47)
[2020-11-17] MEDS ORDERED: Bupivacaine PF 0.5% 30 ML VIAL ONE (07:07)
[2020-11-17] MEDS ORDERED: XYLOCAINE 2%-EPI 1:100,000 20 ML VIAL ONE ×2 (07:07→07:09)
[2020-11-17] MEDS: Albuterol Sulfate 2.5 mg/3 ml Neb NEB SCH ×3 (07:20→18:15)
[2020-11-17] MEDS ORDERED: Phenylephrine 10 MG/ML VIAL ONE (07:28)
[2020-11-17] MEDS ORDERED: SUGAMMADEX SODIUM 200 MG/2 ML VIAL ONE (07:28)
[2020-11-17] MEDS ORDERED: Midazolam HCl 5 mg/5 ml Vial ONE (07:28)
[2020-11-17 07:44] LABS: Actual Bicarbonate (HCO3a) 37.3 mEq/L (22-28); Base Excess (BEa) 10.4 mEq/L (-2.0 to +3.0); CO2 Tension 59.3 mmHg (35.0-45.0); Calcium, Ionized (arterial) 1.22 mmol/L (1.12-1.30); Carboxyhemoglobin (COHb) 1.6 gm% (0.0-3.0); Hemoglobin (Hb) 14.1 g/dL (14.0-18.0); Potassium - ABG Lab 3.98 mmol/L (3.70-5.30); pH, Arterial 7.42 (7.35-7.45)
[2020-11-17 07:46] LABS: O2 Tension (PaO2), arterial 41.2 mmHg (> 70.0)
[2020-11-17 07:47] LABS: ALV-art Gradient 241.175 mmHg (0-20); Puncture Site RRA
[2020-11-17] MEDS: Carvedilol 3.125 MG TAB PO SCH ×2 (08:00→17:56)
[2020-11-17] MEDS: methylPREDNISolone Sod Succ 40 MG VIAL IVP SCH ×2 (08:00→20:09)
[2020-11-17] MEDS: Colchicine 0.6 MG TAB PO SCH (08:00)
[2020-11-17] MEDS: Ascorbic Acid 500 mg Chewable Tablet PO SCH ×2 (08:00→20:09)
[2020-11-17] MEDS: Pantoprazole 40 MG VIAL IVP SCH ×2 (08:00→20:09)
[2020-11-17] MEDS ORDERED: PHENYLEPHRINE-NS 100 MCG/ML 10 ML SYRINGE ONE (08:12)
[2020-11-17] MEDS ORDERED: Rocuronium Bromide 10 MG/ML (10ML VIAL) ONE (08:12)
[2020-11-17] MEDS: Aspirin 325 MG TAB PO SCH (09:23)
[2020-11-17] MEDS: Enoxaparin Sodium 60 MG/0.6 ML SYRINGE SC SCH ×2 (09:23→20:09)
[2020-11-17] MEDS ORDERED: Fentanyl CADD 100 ML ONE (09:55)
[2020-11-17] MEDS: Lantus 1000 UNITS/10 ML VIAL SC SCH ×2 (10:30→21:47)
[2020-11-17] MEDS: Acetaminophen 325 MG TAB PO PRN (12:14)
[2020-11-17] MEDS: Lorazepam 2 MG/ML VIAL SLOW IVP PRN (14:03)
[2020-11-17] MEDS: Cholecalciferol 1,000 UNITS (25 MCG) TAB PO SCH (20:09)
[2020-11-17] MEDS: Atorvastatin Calcium 40 MG TAB PO SCH (20:09)
[2020-11-18] MEDS: Propofol 1,000 MG/100 ML VIAL IV PRN ×4 (00:45→22:43)
[2020-11-18] MEDS ORDERED: Fentanyl CADD 100 ML ONE (03:46)
[2020-11-18] MEDS: Fentanyl CADD 100 ML IV SCH (03:48)
[2020-11-18 04:13] LABS: Hemoglobin 12.1 g/dL (14.0-18.0); Mean Corpuscular HGB CONC 31.8 g/dL (32.0-36.0); Mean Corpuscular Hemoglobin 27.7 pg (27.0-31.0); Mean Corpuscular Volume 87.2 fL (78.0-98.0); Mean Platelet Volume 7.6 fL (7.4-10.4); Platelet Count 158 thou/uL (130-400); RBC Distribution Width 14.6 % (11.5-14.5); Red Blood Cell (RBC) Count 4.38 mill/uL (4.70-6.10); White Blood Cell (WBC) Count 4.3 thou/uL (4.8-10.8)
[2020-11-18 04:29] LABS: BUN (Urea Nitrogen) 28 mg/dL (8.4-25.7); Calc. Creatinine Clearance 113 mL/min (70-130); Calcium 8.4 mg/dL (7.8-10.44); Glucose 188 mg/dL (83-110)
[2020-11-18 04:38] LABS: Anion Gap 11 mmol/L (10-20); Carbon Dioxide 35 mmol/L (23-31); Chloride 98 mmol/L (98-107); Potassium 4.6 mmol/L (3.5-5.1); Sodium 139 mmol/L (136-145)
[2020-11-18 05:45] LABS: Band 34 % (5-11); Lymphocytes 7 % (21-51); MDiff Complete? YES; Monocytes 3 % (0-10); Neutrophil 56 % (42-75)
[2020-11-18 07:56] LABS: Actual Bicarbonate (HCO3a) 42.8 mEq/L (22-28); Base Excess (BEa) 11.2 mEq/L (-2.0 to +3.0); Calcium, Ionized (arterial) 1.16 mmol/L (1.12-1.30); Carboxyhemoglobin (COHb) 1.3 gm% (0.0-3.0); Hemoglobin (Hb) 14.1 g/dL (14.0-18.0); O2 Tension (PaO2), arterial 66.8 mmHg (> 70.0); Potassium - ABG Lab 4.39 mmol/L (3.70-5.30); pH, Arterial 7.26 (7.35-7.45)
[2020-11-18 08:19] LABS: CO2 Tension 98.7 mmHg (35.0-45.0)
[2020-11-18 08:20] LABS: ALV-art Gradient 380.225 mmHg (0-20); Puncture Site RRA
[2020-11-18] MEDS: Albuterol Sulfate 2.5 mg/3 ml Neb NEB SCH ×3 (08:22→18:36)
[2020-11-18] MEDS: Carvedilol 3.125 MG TAB PO SCH ×2 (08:30→18:06)
[2020-11-18] MEDS: Aspirin 325 MG TAB PO SCH (08:30)
[2020-11-18] MEDS: Enoxaparin Sodium 60 MG/0.6 ML SYRINGE SC SCH ×2 (08:30→20:42)
[2020-11-18] MEDS: Colchicine 0.6 MG TAB PO SCH (08:30)
[2020-11-18] MEDS: Pantoprazole 40 MG VIAL IVP SCH ×2 (08:31→20:42)
[2020-11-18] MEDS: Ascorbic Acid 500 mg Chewable Tablet PO SCH ×2 (08:31→20:42)
[2020-11-18] MEDS: methylPREDNISolone Sod Succ 40 MG VIAL IVP SCH ×2 (08:32→20:42)
[2020-11-18] MEDS: Lantus 1000 UNITS/10 ML VIAL SC SCH ×2 (08:50→20:56)
[2020-11-18] MEDS: HumaLOG 300 UNITS/3 ML VIAL SC PRN ×2 (08:51→20:57)
[2020-11-18] MEDS: Atorvastatin Calcium 40 MG TAB PO SCH (20:42)
[2020-11-18] MEDS: Cholecalciferol 1,000 UNITS (25 MCG) TAB PO SCH (20:42)
[2020-11-19] MEDS ORDERED: Fentanyl CADD 0 ML ONE (02:03)
[2020-11-19] MEDS: Fentanyl CADD 100 ML IV SCH ×2 (02:13→23:26)
[2020-11-19] MEDS: Lorazepam 2 MG/ML VIAL SLOW IVP PRN ×2 (02:29→23:19)
[2020-11-19] MEDS: Propofol 1,000 MG/100 ML VIAL IV PRN ×5 (03:53→23:46)
[2020-11-19 03:59] LABS: Anion Gap 9 mmol/L (10-20); BUN (Urea Nitrogen) 28 mg/dL (8.4-25.7); Calc. Creatinine Clearance 113 mL/min (70-130); Calcium 8.8 mg/dL (7.8-10.44); Carbon Dioxide 35 mmol/L (23-31); Chloride 97 mmol/L (98-107); Glucose 270 mg/dL (83-110); Potassium 4.7 mmol/L (3.5-5.1); Sodium 136 mmol/L (136-145)
[2020-11-19 04:15] LABS: Band 24 % (5-11); Hemoglobin 11.9 g/dL (14.0-18.0); Lymphocytes 7 % (21-51); MDiff Complete? YES; Mean Corpuscular HGB CONC 32.5 g/dL (32.0-36.0); Mean Corpuscular Hemoglobin 28.3 pg (27.0-31.0); Mean Platelet Volume 8.6 fL (7.4-10.4); Monocytes 3 % (0-10); Neutrophil 66 % (42-75); Platelet Count 182 thou/uL (130-400); RBC Distribution Width 14.5 % (11.5-14.5); Red Blood Cell (RBC) Count 4.19 mill/uL (4.70-6.10); White Blood Cell (WBC) Count 4.7 thou/uL (4.8-10.8)
[2020-11-19] MEDS: Albuterol Sulfate 2.5 mg/3 ml Neb NEB SCH ×3 (07:23→18:36)
[2020-11-19 07:43] LABS: Calcium, Ionized (arterial) 1.19 mmol/L (1.12-1.30); Carboxyhemoglobin (COHb) 0.9 gm% (0.0-3.0); Hemoglobin (Hb) 12.5 g/dL (14.0-18.0); O2 Tension (PaO2), arterial 73.6 mmHg (> 70.0); Potassium - ABG Lab 4.43 mmol/L (3.70-5.30); pH, Arterial 7.38 (7.35-7.45)
[2020-11-19] MEDS: Carvedilol 3.125 MG TAB PO SCH ×2 (08:17→16:20)
[2020-11-19] MEDS: Aspirin 325 MG TAB PO SCH (08:18)
[2020-11-19] MEDS: Colchicine 0.6 MG TAB PO SCH (08:18)
[2020-11-19] MEDS: Ascorbic Acid 500 mg Chewable Tablet PO SCH ×2 (08:18→21:04)
[2020-11-19] MEDS: Enoxaparin Sodium 60 MG/0.6 ML SYRINGE SC SCH ×2 (08:18→21:04)
[2020-11-19] MEDS: methylPREDNISolone Sod Succ 40 MG VIAL IVP SCH ×2 (08:18→21:23)
[2020-11-19] MEDS: Pantoprazole 40 MG VIAL IVP SCH ×2 (08:19→21:04)
[2020-11-19] MEDS: HumaLOG 300 UNITS/3 ML VIAL SC PRN ×2 (08:20→21:16)
[2020-11-19 08:39] LABS: Puncture Site RRA
[2020-11-19] MEDS ORDERED: Lantus 1000 UNITS/10 ML VIAL SC SCH ×2 (09:00→21:00)
[2020-11-19] MEDS: MEROPENEM 1 GM/50 ML 1 GM in Premix Bag 1 BAG IVPB SCH ×2 (13:55→21:04)
[2020-11-19] MEDS: Vancomycin 1.5 GRAM/300 ML BAG 1.5 GM in Premix Bag 1 BAG IVPB SCH (14:25)
[2020-11-19 14:39] VITALS: BP 126/63
[2020-11-19] MEDS ORDERED: Fentanyl CADD 100 ML ONE ×2 (20:15→23:23)
[2020-11-19] MEDS ORDERED: ALPRAZolam 0.5 MG TAB PO SCH (21:00)
[2020-11-19] MEDS ORDERED: AcetaZOLAMIDE 250 MG TAB PO SCH (21:00)
[2020-11-19] MEDS: Atorvastatin Calcium 40 MG TAB PO SCH (21:04)
[2020-11-19] MEDS: Cholecalciferol 1,000 UNITS (25 MCG) TAB PO SCH (21:04)
[2020-11-20 00:45] LABS: ALT (SGPT) 52 U/L (8-55); AST (SGOT) 38 U/L (5-34); Albumin 2.3 g/dL (3.4-4.8); Alkaline Phosphatase 94 U/L (40-110); Anion Gap 9 mmol/L (10-20); BUN (Urea Nitrogen) 34 mg/dL (8.4-25.7); Bilirubin, Total 0.3 mg/dL (0.2-1.2); Calc. Creatinine Clearance 114 mL/min (70-130); Calcium 8.9 mg/dL (7.8-10.44); Carbon Dioxide 37 mmol/L (23-31); Chloride 99 mmol/L (98-107); Globulin 3.4 g/dL (2.4-3.5); Glucose 201 mg/dL (83-110); Magnesium 2.4 mg/dL (1.6-2.6); Potassium 4.2 mmol/L (3.5-5.1); Protein, Total 5.7 g/dL (5.8-8.1); Sodium 141 mmol/L (136-145)
[2020-11-20 00:46] VITALS: TEMP 98.3
[2020-11-20 00:49] LABS: Troponin I 0.045 ng/mL (< 0.028)
[2020-11-20] MEDS: Lorazepam 2 MG/ML VIAL SLOW IVP PRN (01:29)
[2020-11-20] MEDS ORDERED: Atropine Sulfate 1 mg/10 ml Syringe ONE ×2 (01:48→02:02)
[2020-11-20] MEDS ORDERED: EPINEPHrine 1 MG/10 ML Abboject SYRINGE ONE (02:02)
[2020-11-20] MEDS ORDERED: Norepinephrine 8 MG/0.9% NS 250 ML ONE (02:12)
[2020-11-20 02:25] LABS: #Basophils 0.1 thou/uL (0.0-0.2); #Eosinphils 0.1 thou/uL (0.0-0.7); #Lymphocytes 1.2 thou/uL (1.20-3.40); #Monocytes 0.4 thou/uL (0.11-0.59); #Neutrophils 5.1 thou/uL (1.40-6.50); %Eosinophils 0.9 % (0.0-10.0); %Lymphocytes 17.2 % (21.0-51.0); %Monocytes 5.5 % (0.0-10.0); %Neutrophils 74.5 % (42.0-75.0); Mean Corpuscular HGB CONC 31.5 g/dL (32.0-36.0); Mean Corpuscular Hemoglobin 27.9 pg (27.0-31.0); Mean Corpuscular Volume 88.8 fL (78.0-98.0); Mean Platelet Volume 8.3 fL (7.4-10.4); Platelet Count 191 thou/uL (130-400); RBC Distribution Width 14.6 % (11.5-14.5); White Blood Cell (WBC) Count 6.9 thou/uL (4.8-10.8)
[2020-11-20] MEDS: Vancomycin 1.5 GRAM/300 ML BAG 1.5 GM in Premix Bag 1 BAG IVPB SCH (04:51)
== END 2020-11-20 02:37 | disposition expired | DRG 3 ==
LOC: ERS 13:28 → IMCU/EMU 16:02 → CCU 11-11 05:09
PROVIDERS: ADMIT Internal Medicine; ATTEND Internal Medicine
PROC: XW033E5 Introduction of Remdesivir Anti-infective into Peripheral Vein, Percutaneous Approach, New Technology Group 5 (ICD-10-PCS; principal; 2020-10-24)
PROC: 8E0ZXY6 Isolation (ICD-10-PCS; 2020-10-24)
PROC: 5A0955A Assistance with Respiratory Ventilation, Greater than 96 Consecutive Hours, High Flow/Velocity Cannula (ICD-10-PCS; 2020-10-24)
PROC: 0DH67UZ Insertion of Feeding Device into Stomach, Via Natural or Artificial Opening (ICD-10-PCS; 2020-10-24)
PROC: 5A1955Z Respiratory Ventilation, Greater than 96 Consecutive Hours (ICD-10-PCS; 2020-11-13)
PROC: 0BH17EZ Insertion of Endotracheal Airway into Trachea, Via Natural or Artificial Opening (ICD-10-PCS; 2020-11-13)
PROC: 5A09357 Assistance with Respiratory Ventilation, Less than 24 Consecutive Hours, Continuous Positive Airway Pressure (ICD-10-PCS; 2020-11-13)
PROC: 0B110F4 Bypass Trachea to Cutaneous with Tracheostomy Device, Open Approach (ICD-10-PCS; 2020-11-16)
PROC: 0DH63UZ Insertion of Feeding Device into Stomach, Percutaneous Approach (ICD-10-PCS; 2020-11-16)
PROC: 0W360ZZ Control Bleeding in Neck, Open Approach (ICD-10-PCS; 2020-11-20)
PROC: 3E033XZ Introduction of Vasopressor into Peripheral Vein, Percutaneous Approach (ICD-10-PCS; 2020-11-20)
PROC: 0BC Respiratory System, Extirpation (ICD-10-PCS; 2020-11-20)
PROC: 0BP1XFZ Removal of Tracheostomy Device from Trachea, External Approach (ICD-10-PCS; 2020-11-20)
PROC: 0BH17EZ Insertion of Endotracheal Airway into Trachea, Via Natural or Artificial Opening (ICD-10-PCS; 2020-11-20)
DX: A41.89 Other specified sepsis (principal); U07.1 COVID-19; J12.82 Pneumonia due to coronavirus disease 2019; J96.01 Acute respiratory failure with hypoxia; G93.41 Metabolic encephalopathy; N17.0 Acute kidney failure with tubular necrosis; E87.1 Hypo-osmolality and hyponatremia; D68.69 Other thrombophilia; E87.2 Acidosis; E87.0 Hyperosmolality and hypernatremia; J93.9 Pneumothorax, unspecified; E46 Unspecified protein-calorie malnutrition; J95.01 Hemorrhage from tracheostomy stoma; I47.2 Ventricular tachycardia; Z99.11 Dependence on respirator [ventilator] status; Z66 Do not resuscitate; E78.5 Hyperlipidemia, unspecified; E78.00 Pure hypercholesterolemia, unspecified; E86.0 Dehydration; N18.30 Chronic kidney disease, stage 3 unspecified; E11.22 Type 2 diabetes mellitus with diabetic chronic kidney disease; F39 Unspecified mood [affective] disorder; F41.9 Anxiety disorder, unspecified; E11.65 Type 2 diabetes mellitus with hyperglycemia; I12.9 Hypertensive chronic kidney disease with stage 1 through stage 4 chronic kidney disease, or unspecified chronic kidney disease; E11.649 Type 2 diabetes mellitus with hypoglycemia without coma; E87.5 Hyperkalemia; E88.09 Other disorders of plasma-protein metabolism, not elsewhere classified; I95.9 Hypotension, unspecified; R13.10 Dysphagia, unspecified; R00.1 Bradycardia, unspecified; Y83.3 Surgical operation with formation of external stoma as the cause of abnormal reaction of the patient, or of later complication, without mention of misadventure at the time of the procedure; R45.1 Restlessness and agitation; J98.2 Interstitial emphysema; G47.00 Insomnia, unspecified; Z87.891 Personal history of nicotine dependence; Z90.49 Acquired absence of other specified parts of digestive tract; Z68.30 Body mass index [BMI] 30.0-30.9, adult; Z79.4 Long term (current) use of insulin; Z79.82 Long term (current) use of aspirin; Z79.899 Other long term (current) drug therapy; Z78.1 Physical restraint status
CPT/HCPCS: 0240U; 31624; 36415; 36416; 36600; 71045; 71275; 80048; 80053; 80069; 81001; 82040; 82553; 82570; 82728; 82805; 83605; 83615; 83690; 83735; 83880; 84100; 84156; 84300; 84484; 84540; 85007; 85025; 85027; 85379; 86140; 87040; 87070; 87077; 87086; 87205; 93005; 93010; 93306; 94002; 94003; 94640; 94660; 96365; 96367; 96374; 96375; C9113; J0171; J0456; J0461; J0696; J1100; J1644; J1650; J1815; J1940; J2060; J2185; J2250; J2270; J2370; J2405; J2704; J2920; J2930; J3010; J3370; J3490; J7050; J7070; J7611; P9047; Q9967; S0020